=== PATIENT | female | born 1960 | race Caucasian/White ===

== ENCOUNTER 2019-10-05 13:01 | Emergency (ER) | payer BC ==
[~2019-10-05] VITALS: Ht 152.4 cm; Wt 72.7 kg
--- NOTE | 2019-10-05 13:20 | ED Lower Extremity ---
General Chief Complaint: Lower Extremity Stated Complaint: LT FOOT INJ Source: patient, RN/MD Exam Limitations: no limitations History of Present Illness Date Seen by Provider: Oct 05, 2019 Time Seen by Provider: 13:15 Initial Comments This patient is a 59-year-old female presents to the emergency department after walking and stepping on some brick and somehow hurt in her foot. Patient states it is painful to walk. Patient denies twisting her ankle. Since that the pain is in her midfoot distally toward her toes. No signs of injury no swelling. We'll do medical evaluation treatment is needed Onset: just prior to arrival Pain/Injury Location: left foot Allergies and Home Medications Patient Home Medication List Home Medication List Reviewed: Yes Review of Systems Constitutional: No no symptoms reported; see HPI; No chills, No diaphoresis, No dizziness, No fever, No malaise, No weakness, No weight gain, No weight loss, No other EENTM: No see HPI, No no symptoms reported, No ear discharge, No hearing loss, No ear pain, No blurred vision, No double vision, No eye pain, No tearing, No vision loss, No dental problems, No hoarseness, No mouth pain, No mouth swelling, No epistaxis, No nose congestion, No nose pain, No throat pain, No throat swelling, No other Respiratory: No no symptoms reported, No see HPI, No cough, No dyspnea on exertion, No hemoptysis, No orthopnea, No phlegm, No short of breath, No stridor, No wheezing, No other Cardiovascular: No no symptoms reported, No see HPI, No chest pain, No edema, No Hx of Intervention, No palpitations, No syncope, No vascular heart diseas, No other Gastrointestinal: No RUQ, No LUQ, No RLQ, No LLQ, No no symptoms reported, No see HPI, No abdominal pain, No constipation, No diarrhea, No dysphagia, No hematemesis, No heartburn, No jaundice, No loss of appetite, No melena, No nausea, No vomiting, No other Genitourinary: No no symptoms reported, No see HPI, No decreased output, No discharge, No dysuria, No frequency, No hematuria, No hesitancy, No incont inence, No nocturia, No pain, No other Musculoskeletal: see HPI, joint pain All Other Systems Reviewed Negative Unless Noted: Yes Past Vzdcwuz-Itmjim-Eewyrn Hx Patient Social History Recent Foreign Travel: No Contact w/Someone Who Travel: No Physical Exam Vital Signs Vital Signs - First Documented 10/05/19 13:17 Temp 36.5 Pulse 96 Resp 16 B/P (MAP) 124/81 (95) Pulse Ox 98 O2 Delivery Room Air Capillary Refill : Height, Weight, BMI Height: '" Weight: lbs. oz. kg; BMI Method: General Appearance: WD/WN, no apparent distress Cardiovascular: normal peripheral pulses, regular rate, rhythm, no edema, no gallop, no JVD, no murmur Respiratory: chest non-tender, lungs clear, normal breath sounds, no respiratory distress, no accessory muscle use Gastrointestinal: normal bowel sounds, non tender, soft, no organomegaly, no pulsatile mass Feet: left foot pain, left foot soft tissue tenderness Neurologic/Tendon: normal sensation Skin: normal color, warm/dry Progress/Results/Core Measures Results/Orders My Orders Orders - KINGSLEY HALEY MD Foot 3 View Left (10/05/19 13:17) Vital Signs/I&O 10/05/19 13:17 Temp 36.5 Pulse 96 Resp 16 B/P (MAP) 124/81 (95) Pulse Ox 98 O2 Delivery Room Air Progress Progress Note : Time: 13:59 Progress Note Patient has a fracture in her second metatarsal. Patient will placed in a walking boot and crutches for the first 2-3 days. Continue the walking boot and follow up with Dr. pena orthoped[facility]. Patient is to rest ice and elevate her leg is much possible. Patient states understanding she'll be discharged Departure Impression Primary Impression: Fracture of foot Disposition: 01 HOME, SELF-CARE Condition: Stable Departure-Patient Inst. Decision time for Depature: 14:00 Referrals: ANA COLVIN (PCP) Primary Care Physician MARY LAFLEUR MD Patient Instructions: Foot Fracture (DC) Add. Discharge Instructions: Rest ice and elevate. Walking boot as instructed. Follow-up with orthopedics as instructed. All discharge instructions reviewed with patient and/or family. Voiced understanding. Scripts Diclofenac Sodium (Diclofenac Sodium) 75 Mg Tablet. 75 MG PO BID for 10 Days, #20 TAB 0 Refills Prov: KINGSLEY HALEY MD 10/05/19 KINGSLEY HALEY MD Oct 05, 2019 13:20
--- NOTE | 2019-10-05 13:40 | Diagnostic Imaging Report ---
EXAMINATION: Left foot at 1225h. INDICATION: Injury foot pain. 4 views were obtained. There are no prior studies available for comparison. There is an oblique slightly displaced fracture extending through the distal shaft and neck of the 2nd metatarsal. No other fracture or acute bony abnormality is identified. The Lisfranc joint was not particularly well visualized but there is no definite abnormality of the joint. The soft tissues are unremarkable. IMPRESSION: There is an oblique slightly displaced fracture involving the distal shaft and neck of the 2nd metatarsal. There is no acute bony abnormality noted otherwise. Dictated by: Dictated on workstation # [id number]
[2019-10-05] MEDS ORDERED: DICL75TA2 PO (14:01)
--- OUTSIDE RECORDS SUMMARY | 2019-10-05 14:07 | XMS REPORT ---
Author Author Jordan CRESPO [facility] Address [address] [place] [address] Care Team Providers Care Tuberculosis Specialist Name Role Phone DELLA CRESPO Unavailable PROBLEMS Type Condition ICD9-CM Code LFT08-YC Code Onset Dates Condition S tatus SNOMED Code Problem Seasonal allergic rhinitis due to pollen J30.1 Active 10428779 Problem Autoimmune thyroiditis E06.3 Active 26936230 Problem Vitamin D deficiency E55.9 Active 94318703 Problem Fatigue, unspecified type R53.83 Acti ve 06388431 Problem Anxiety, mild F41.9 Active 388797 04 Problem Asthma, mild intermittent, well-controlled J45.20 Active 573768478 ALLERGIES Substance Reaction Event Type Date Status Mucinex Unknown Drug Allergy Feb, Active Levaquin Unknown Drug Allergy Feb, Active Keflex Unknown Drug Allergy Feb, Active Ibuprofen Unknown Drug Allergy Feb, Active Erythromycin Unknown Drug Allergy Feb, Active SOCIAL HISTORY No smoking Hx information available PLAN OF CARE VITAL SIGNS Height 60 in 2016-03-20 Weight 162.8 lbs 2016-03-20 Temperature 97.9 degrees Fahrenheit 2016-03-20 Heart Rate 86 bpm 2016-03-20 Respiratory Rate 20 2016-03-20 BMI 31.79 kg/m2 2016-03-20 Blood pressure systolic 128 mmHg 2016-03-20 Blood pressure diastolic 88 mmHg 2016-03-20 MEDICATIONS Medication Instructions Dosage Frequency Start Date End Date Duration S tatus Venlafaxine HCl ER 75 MG Orally Once a day 1 capsule with food 24h Jul, Active Advair Diskus 250-50 MCG/DOSE Inhalation Twice a day 1 puff 12h Active PredniSONE 20 mg Orally Once a day 2 tablets 24h Feb, Feb, 05 days Active Allergy Relief 10 MG Orally Once a day 1 tablet 24h Active Colon-Aid Active Cetirizine HCl 10 mg Orally Once a day 1 tablet 24h Jan, 6 Oct, 90 days Active Loratadine 10 mg Orally Once a day 1 tablet 24h Jan, Apr, 90 days Active Hydrochlorothiazide 12.5 MG Orally Once a day 1 tablet 24h Jul, 2 016 Active Fexofenadine HCl 180 MG Orally Once a day 1 tablet as needed 24h Active ProAir HFA 108 (90 Base) MCG/ACT Inhalation every 4 hrs 2 puffs as needed 4h 10 Dec, 2015 Active Levothyroxine Sodium 100 MCG Orally Once a day 1 tablet 24h 90 days Active Augmentin 875-125 MG Orally every 12 hrs 1 tablet 12h Feb, 2 017 4 Mar, 2016 10 day(s) Active Ergocalciferol 64871 UNIT Orally once weekly for 12 weeks 1 capsule Feb, Active Fluticasone Propionate 50 MCG/ACT Nasally Once a day 1 spray in each nostril 24h Jan, 90 days Active RESULTS No Results PROCEDURES Procedure Date Ordered Related Diagnosis Body Site Office Visit, Est Pt., Level 3 Mar 20, 2016 IMMUNIZATIONS No Known Immunizations
--- OUTSIDE RECORDS SUMMARY | 2019-10-05 14:07 | XMS REPORT ---
Author Author Jordan NEELY Organization [facility] Address [address] [place] [address] Care Team Providers Care Back Shoe Cutter Name Role Phone NURIA NEELY Unavailable PROBLEMS Type Condition ICD9-CM Code JGF10-NZ Code Onset Dates Condition S tatus SNOMED Code Problem Seasonal allergic rhinitis due to pollen J30.1 Active 00875230 Problem Autoimmune thyroiditis E06.3 Active 86703700 Problem Vitamin D deficiency E55.9 Active 57448410 Problem Fatigue, unspecified type R53.83 Acti ve 30951265 Problem Anxiety, mild F41.9 Active 074993 04 Problem Asthma, mild intermittent, well-controlled J45.20 Active 318582730 ALLERGIES Unknown Allergies SOCIAL HISTORY No smoking Hx information available PLAN OF CARE VITAL SIGNS MEDICATIONS Medication Instructions Dosage Frequency Start Date End Date Duration S tatus Ergocalciferol 98226 UNIT Orally once weekly for 12 weeks 1 capsule Feb, Active RESULTS No Results PROCEDURES No Known procedures IMMUNIZATIONS No Known Immunizations
--- OUTSIDE RECORDS SUMMARY | 2019-10-05 14:07 | XMS REPORT ---
Author Author Jordan COLVIN [facility] Address [address] [place] [address] Care Team Providers Care Roast Master Name Role Phone VINICIUS ANA Unavailable PROBLEMS Type Condition ICD9-CM Code DOK77-NJ Code Onset Dates Condition S tatus SNOMED Code Problem Seasonal allergic rhinitis due to pollen J30.1 Active 10365856 Problem Autoimmune thyroiditis E06.3 Active 70007069 Problem Vitamin D deficiency E55.9 Active 37075653 Problem Fatigue, unspecified type R53.83 Acti ve 86148659 Problem Anxiety, mild F41.9 Active 711590 04 Problem Asthma, mild intermittent, well-controlled J45.20 Active 451962873 ALLERGIES No Information ENCOUNTERS Encounter Location Date Diagnosis [address] [id number] [place], [place] [id number] Jul, Well woman exam (no gynecological exam) Z00.00 ; Colon cancer screening Z12.11 ; Breast cancer screening by mammogram Z12.31 ; Autoimmune thyroiditis E06.3 and Fatigue, unspecified type R53.[address] [id number] [place], [place] [address] 218700 Mar, Anxiety, mild F41.[address] [id number] [place], [place] [address] 070615 Nov, Asthma, mild intermittent, well-controlled J45.[address] [id number] [place], [place] [address] 924438 Nov, Pre-diabetes R73.03 [facility] [address] [place] [address] C [id number] [place], [place] [address] 714270 Aug, Pre-diabetes R73.03 [facility] [address] [place] [address] C [id number] [place], [place] [address] 626140 Aug, Autoimmune thyroiditis E06.3 [place] [address] [address] [facility] [id number] [address] [place] [phone] 06 Aug, 2016 Anxiety, mild F41.9 ; Vitami n D deficiency E55.9 and Autoimmune thyroiditis E06.3 [facility] [place] [address] [facility] [id number] [place], [place] [address] 198631 03 Aug, 2016 Well woman exam (no gynecological exam) Z00.00 and Encounter for screening mammogram for breast cancer Z12.[address] [id number] [address] [place] [phone] Jul, [address] [id number] [place] [address] June, Anxiety, mild F41.9 ; Vitami n D deficiency E55.9 ; Seasonal allergic rhinitis due to pollen J30.1 ; Asthma, mild intermittent, well- controlled J45.20 and Autoimmune thyroiditis E06.[address] [id number] [address] [place] [phone] May, [facility] [place] [address] [address] [facility] [id number] [address] [place] [phone] Feb, Acute recurrent frontal sinu sitis J01.11 [place] [address] [address] [facility] [id number] [address] [place] [phone] Feb, [address] [id number] [address] [place] [phone] Feb, [place] [address] [address] [place] [id number] [address] [place] [phone] Feb, Postprocedural hypothyroidis m E89.0 and Other fatigue R53.83 [facility] [address] [facility] [id number] [address] [place] [phone] Feb, Acute recurrent pansinusitis J01.41 [place] [address] [address] [facility] [id number] [address] [place] [address] Feb, Postprocedural hypothyroidis m E89.0 and Other fatigue R53.83 [facility] [place] [address] [facility] [id number] [address] [place] [phone] Jan, Seasonal allergic rhinitis d ue to pollen J30.1 and Hypothyroidism E03.9 [facility] [place] [address] [facility] [id number] [place] [address] 05 Jan, 2016 Upper respiratory infection, acute J06.9 [facility] [place] [address] [facility] [id number] [address] [place] [phone] Dec, Routine health maintenance Z 00.00 ; Asthma, mild intermittent, well-controlled J45.20 ; Autoimmune thyroiditis E06.3 ; Hypothyroidism E03.9 and Anxiety, mild F41.[address] [id number] [place], [place] [address] [id number] Sep, [facility] [place] [address] [place] [address] [address] [id number] [place], [place] [address] 904387 Sep, [facility] [place] [address] [place] [address] [address] [id number] [place], [place] [address] 745861 Sep, [facility] [place] [address] [place] [address] [address] [id number] [place] [address] [id number] Sep, [facility] [address] [place] [address] [address] [id number] [place], [place] [address] 265534 Jul, [facility] [place] [address] [place] [address] [address] [id number] [place], [place] [address] 665302 Jul, Edema, unspecified type R60.9 and Hypothyroidism E03.9 [facility] [place] [address] [place] [address] [address] [id number] [place], [place] [address] 049748 09 Jul, 2015 Routine gynecological examination Z01.419 ; Screening for lipid disorders Z13.220 ; Screening for diabetes mellitus Z13.1 ; Dysuria R30.0 and Encounter for screening mammogram for breast cancer Z12.31 [facility] [address] [place] [address] [address] [id number] [place], [place] [address] 960779 Jul, [facility] [address] [place] [address] [address] [id number] [place], [place] [address] [id number] Jul, Hypothyroidism E03.9 ; Acute right-sided low back pain without sciatica M54.5 ; Screening for lipid disorders Z13.220 and Screening for diabetes mellitus Z13.1 [facility] [place] [address] [facility] [id number] [address] [place] [phone] Apr, [facility] [place] [address] [facility] [address] [id number] [place], [place] [address] [id number] Mar, [facility] [place] [address] [facility] [address] [id number] [place] [address] 996684 Feb, [facility] [place] [address] [facility] [address] [id number] [place], [place] [address] 928813 Feb, Left maxillary sinusitis J32.0 [facility] [place] [address] [facility] [address] [id number] [place], [place] [address] 395163 Feb, Dental examination Z01.20 [facility] [place] [address] [facility] [address] [id number] [place] [address] [id number] Sep, Upper respiratory infection 465.9 [facility] [place] [address] [facility] [address] [id number] [place], [place] [address] [id number] 15 Jul, 2014 [facility] [place] [address] [facility] [address] [id number] [place] [address] 578865 Jul, [facility] [place] [address] [facility] [address] [id number] [place], [place] [address] 080221 10 Jul, 2014 [facility] [place] [address] [facility] [address] [id number] [place] [address] 027535 08 Jul, 2014 Anxiety 300.00 ; Asthma 493.90 ; URI, acute 465.9 and 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 [facility] [place] [address] [facility] [address] [id number] [place], [place] [address] [id number] June, [facility] [place] [address] [facility] [address] [id number] [place], [place] [address] 230352 June, Asthma 493.90 and Unspecified disorder of thyroid 246.9 [facility] [place] [address] [facility] [id number] [address] [place] [phone] 14 May, 2014 [facility] [place] [address] [facility] [id number] [address] [place] [phone] May, [facility] [place] [address] [facility] [id number] [address] [place] [phone] Mar, [facility] [place] [address] [facility] [id number] [address] [place] [phone] Mar, [facility] [place] [address] [facility] [id number] [address] [place] [phone] Mar, [facility] [place] [address] [facility] [id number] [address] [place] [phone] Mar, IMMUNIZATIONS No Known Immunizations SOCIAL HISTORY Never Assessed REASON FOR VISIT med refills PLAN OF CARE VITAL SIGNS MEDICATIONS Medication Instructions Dosage Frequency Start Date End Date Duration S latoya Venlafaxine HCl ER 37.5 MG Orally Once a day 1 capsule with food 24 h Jul, 90 days Active RESULTS No Results PROCEDURES No Known procedures INSTRUCTIONS MEDICATIONS ADMINISTERED No Known Medications MEDICAL (GENERAL) HISTORY Type Description Date Medical History Other asthma Medical History Hypothyroidism Medical History Autoimmune thyroiditis Medical History Anxiety Medical History Blanca's disease Medical History galbladder removal Surgical History thyroidectomy, complete Surgical History dilatation and curettage Surgical History R shoulder Surgical History had cartilage removed from bilat knees Surgical History gallbladder removal 04/2017 Hospitalization History Hospitalization for surgery only
--- OUTSIDE RECORDS SUMMARY | 2019-10-05 14:07 | XMS REPORT ---
Author Author Jordan COLVIN [facility] [address] Address [address] [place] [address] Care Team Providers Care Stencil Typist Name Role Phone VINICIUS ANA Unavailable PROBLEMS Type Condition ICD9-CM Code [id number] Code Onset Dates Condition S tatus SNOMED Code Problem Seasonal allergic rhinitis due to pollen J30.1 Active 28332069 Problem Autoimmune thyroiditis E06.3 Active 77487064 Problem Vitamin D deficiency E55.9 Active 29581880 Problem Fatigue, unspecified type R53.83 Acti ve 76590456 Problem Anxiety, mild F41.9 Active 181674 04 Problem Asthma, mild intermittent, well-controlled J45.20 Active 573091458 ALLERGIES Substance Reaction Event Type Date Status Mucinex Unknown Drug Allergy Jul, Active Levaquin Unknown Drug Allergy Jul, Active Keflex Unknown Drug Allergy Jul, Active Ibuprofen Unknown Drug Allergy Jul, Active Erythromycin Unknown Drug Allergy Jul, Active ENCOUNTERS Encounter Location Date Diagnosis [facility] [address] [place] [address] Jul, 18 Well woman exam (no gynecological exam) Z00.00 ; Colon cancer screening Z12.11 ; Breast cancer screening by mammogram Z12.31 ; Autoimmune thyroiditis E06.3 and Fatigue, unspecified type R53.83 [facility] [address] [place] [address] 16 Mar, 18 Anxiety, mild F41.9 [facility] [address] [place] [address] Nov, 17 Asthma, mild intermittent, well-controlled J45.20 [facility] [address] [place] [address] Nov, 17 Pre-diabetes R73.[address] [address] 18 Young, 20 17 Pre-diabetes R73.03 [place] [address] [place] [address] Aug, 17 Autoimmune thyroiditis E06.3 [place] [address] [address] Aug, Anxiety, mild F41.9 ; Vitami n D deficiency E55.9 and Autoimmune thyroiditis E06.3 [place] [address] [place] [address] Aug, 17 Well woman exam (no gynecological exam) Z00.00 and Encounter for screening mammogram for breast cancer Z12.31 [place] [address] [address] Jul, [place] [address] [address] June, Anxiety, mild F41.9 ; Vitami n D deficiency E55.9 ; Seasonal allergic rhinitis due to pollen J30.1 ; Asthma, mild intermittent, well- controlled J45.20 and Autoimmune thyroiditis E06.3 [place] [address] [place] [id number] [place] [address] May, [facility]ALK [facility] [place] [address] [place] [id number] [place] [address] Feb, Acute recurrent frontal sinu sitis J01.11 [place] [address] [place] [id number] [place] [address] Feb, [place] [address] [place] [address] Feb, [place] [address] [address] Feb, Postprocedural hypothyroidis m E89.0 and Other fatigue R53.83 [facility] [address] [place] [id number] [place] [address] Feb, Acute recurrent pansinusitis J01.41 [place] [address] [place] [id number] [place] [address] Feb, Postprocedural hypothyroidis m E89.0 and Other fatigue R53.83 [place] [id number] [place] [address] Jan, Seasonal allergic rhinitis d ue to pollen J30.1 and Hypothyroidism E03.9 [facility] WALK IN [facility] [address] [place], [place] [id number] [address] [place] [address] 05 Jan, 2016 Upper respiratory infection, acute J06.9 [facility] [address] [place] [id number] [address] [place] [address] 10 Dec, 2015 Routine health maintenance Z 00.00 ; Asthma, mild intermittent, well-controlled J45.20 ; Autoimmune thyroiditis E06.3 ; Hypothyroidism E03.9 and Anxiety, mild F41.[address] [address] Sep, [address] [address] Sep, [address] [address] Sep, [address] [address] Sep, [address] [address] Jul, [address] [address] Jul, 16 Edema, unspecified type R60.9 and Hypothyroidism E03.[address] [address] 09 Jul, 16 Routine gynecological examination Z01.419 ; Screening for lipid disorders Z13.220 ; Screening for diabetes mellitus Z13.1 ; Dysuria R30.0 and Encounter for screening mammogram for breast cancer Z12.[address] [address] Jul, [address] [address] Jul, 16 Hypothyroidism E03.9 ; Acute right-sided low back pain without sciatica M54.5 ; Screening for lipid disorders Z13.220 and Screening for diabetes mellitus Z13.1 [facility] [address] [place] [id number] [place] [address] Apr, [address] [address] Mar, [address] [address] Feb, [address] [address] Feb, 16 Left maxillary sinusitis J32.[address] [address] Feb, 16 Dental examination Z01.[address] [address] Sep, 15 Upper respiratory infection 465.[address] [address] 15 Jul, [address] [address] Jul, [address] [address] Jul, [address] [address] 08 Jul, 15 Asthma 493.90 ; Anxiety 300.00 ; URI, acute 465.9 and 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 [address] June, [address] [address] June, 15 Asthma 493.90 and Unspecified disorder of thyroid 246.9 [facility] [address] [place] [id number] [address] [place] [address] May, [facility] [address] [place] [id number] [place] [address] May, [facility] [address] [place] [id number] [address] [place] [address] Mar, [facility] [address] [facility] [id number] [address] [place] [address] Mar, [facility] [address] [facility] [id number] [address] [place] [address] Mar, [facility] [address] [facility] [id number] [address] [place] [address] Mar, IMMUNIZATIONS No Known Immunizations SOCIAL HISTORY Never Assessed REASON FOR VISIT Annual physical (female); no problems; no period for 5yrs -- has gone through me nopause; possible increase in venlafaxine?? Pt is fasting....................lwi leyrn PLAN OF CARE Activity Details Follow Up prn, 1 Year Reason: VITAL SIGNS Height 60 in 2017-08-11 Weight 156.1 lbs 2017-08-11 Temperature 97.6 degrees Fahrenheit 2017-08-11 Heart Rate 64 bpm 2017-08-11 Respiratory Rate 18 2017-08-11 BMI 30.48 kg/m2 2017-08-11 Blood pressure systolic 128 mmHg 2017-08-11 Blood pressure diastolic 74 mmHg 2017-08-11 MEDICATIONS Medication Instructions Dosage Frequency Start Date End Date Duration S tatus Levothyroxine Sodium 100 MCG Orally Once a day 1 tablet 24h 90 days Active Venlafaxine HCl ER 75 MG TAKE ONE TABLET BY MOUTH ONCE DAILY WITH FOOD Active Fluticasone Propionate 50 MCG/ACT Nasally Once a day 1 spray in each nostril 24h Jan, 90 days Active Advair Diskus 250-50 MCG/DOSE Inhalation Twice a day 1 puff 12h Active ProAir HFA 108 (90 Base) MCG/ACT Inhalation every 4 hrs 2 puffs as needed 4h 10 Dec, 2015 12 months Active Fexofenadine HCl 180 MG Orally Once a day 1 tablet as needed 24h Active RESULTS No Results PROCEDURES Procedure Date Ordered Result Body Site COMPREHEN METABOLIC PANEL August 11, 2017 VENIPUNCT, ROUTINE* August 11, 2017 ASSAY THYROID STIM HORMONE August 11, 2017 INSTRUCTIONS MEDICATIONS ADMINISTERED No Known Medications MEDICAL [...]
--- OUTSIDE RECORDS SUMMARY | 2019-10-05 14:07 | XMS REPORT ---
Author Author Jordan NEELY Organization [facility] Address [address] [place] [address] Care Team Providers Care Lining Folder Name Role Phone NURIA NEELY Unavailable PROBLEMS Type Condition ICD9-CM Code [id number] Code Onset Dates Condition S tatus SNOMED Code Problem Seasonal allergic rhinitis due to pollen J30.1 Active 35176029 Problem Autoimmune thyroiditis E06.3 Active 23999631 Problem Fatigue, unspecified type R53.83 Acti ve 33411846 Problem Vitamin D deficiency E55.9 Active 39515909 Problem Anxiety, mild F41.9 Active 728327 04 Problem Asthma, mild intermittent, well-controlled J45.20 Active 573075757 ALLERGIES Unknown Allergies SOCIAL HISTORY No smoking Hx information available PLAN OF CARE VITAL SIGNS MEDICATIONS Medication Instructions Dosage Frequency Start Date End Date Duration S tatus Levothyroxine Sodium 100 MCG Orally Once a day 1 tablet 24h 90 days Active RESULTS No Results PROCEDURES No Known procedures IMMUNIZATIONS No Known Immunizations
--- OUTSIDE RECORDS SUMMARY | 2019-10-05 14:07 | XMS REPORT ---
Author Author Jordan RAYMUNDO Organization [facility] Address [address] [place] [address] Care Team Providers Care Automatic Engraver Name Role Phone ZACKARY FERNANDA Unavailable PROBLEMS Type Condition ICD9-CM Code [id number] Code Onset Dates Condition S tatus SNOMED Code Problem Autoimmune thyroiditis E06.3 Active 48558870 Problem Hypothyroidism E03.9 Active 91616 008 Assessment Edema, unspecified type R60.9 Jul, Ac tive 838209312 Problem Anxiety, mild F41.9 Active 306617 04 Problem Asthma, mild intermittent, well-controlled J45.20 Active 298281387 ALLERGIES Substance Reaction Event Type Date Status Mucinex Unknown Drug Allergy Jul, Active Levaquin Unknown Drug Allergy Jul, Active Keflex Unknown Drug Allergy Jul, Active Ibuprofen Unknown Drug Allergy Jul, Active Erythromycin Unknown Drug Allergy Jul, Active SOCIAL HISTORY No smoking Hx information available PLAN OF CARE VITAL SIGNS Height 5' 0" in 2015-08-17 Weight 161.8 lbs 2015-08-17 Heart Rate 84 bpm 2015-08-17 Respiratory Rate 18 2015-08-17 BMI 31.60 kg/m2 2015-08-17 Blood pressure systolic 112 mmHg 2015-08-17 Blood pressure diastolic 80 mmHg 2015-08-17 MEDICATIONS Medication Instructions Dosage Frequency Start Date End Date Duration S tatus Fexofenadine HCl 180 MG Orally Once a day 1 tablet as needed 24h Active Hydrochlorothiazide 12.5 MG Orally Once a day 1 tablet 24h Jul, 016 Active Levothyroxine Sodium 100 MCG Orally Once a day 1 tablet 24h Active Allergy Relief 10 MG Orally Once a day 1 tablet 24h Active RESULTS Name Result Date Reference Range TSH W/ FREE T4 2015-08-17 TSH 0.678 0.450-4.500 T4,Free(Direct) 1.50 0.82-1.77 PROCEDURES Procedure Date Ordered Related Diagnosis Body Site LAB NOT BILLED BY [facility] August 17, 2015 VENIPUNCT, ROUTINE* August 17, 2015 Office Visit, Est Pt., Level 3 August 17, 2015 IMMUNIZATIONS No Known Immunizations
--- OUTSIDE RECORDS SUMMARY | 2019-10-05 14:07 | XMS REPORT ---
Author Author Jordan COLVIN [facility] Address [address] [place] [address] Care Team Providers Care Salesperson Stereo Equipment Name Role Phone ANA COLVIN Unavailable PROBLEMS Type Condition ICD9-CM Code [id number] Code Onset Dates Condition S tatus SNOMED Code Problem Seasonal allergic rhinitis due to pollen J30.1 Active 79341359 Problem Autoimmune thyroiditis E06.3 Active 30092959 Problem Vitamin D deficiency E55.9 Active 80397788 Problem Fatigue, unspecified type R53.83 Acti ve 34983452 Problem Anxiety, mild F41.9 Active 618382 04 Problem Asthma, mild intermittent, well-controlled J45.20 Active 748198612 ALLERGIES Substance Reaction Event Type Date Status Mucinex Unknown Drug Allergy Aug, Active Levaquin Unknown Drug Allergy Aug, Active Keflex Unknown Drug Allergy Aug, Active Ibuprofen Unknown Drug Allergy Aug, Active Erythromycin Unknown Drug Allergy Aug, Active ENCOUNTERS Encounter Location Date Diagnosis [address] [id number] [place], [place] [id number] Mar, Anxiety, mild F41.[address] [id number] [place], [place] [id number] Nov, Asthma, mild intermittent, well-controlled J45.[address] [id number] [place], [place] [id number] Nov, Pre-diabetes R73.[address] [id number] [place], [place] [address] Aug, Pre-diabetes R73.[address] [id number] [place], [place] [address] Aug, Autoimmune thyroiditis E06.3 [facility] [address] [facility] [id number] [facility] [place] [address] Aug, Anxiety, mild F41.9 ; Vitami n D deficiency E55.9 and Autoimmune thyroiditis E06.3 [facility] [address] [facility] [id number] [place], [place] [address] 03 Aug, 2016 Well woman exam (no gynecological exam) Z00.00 and Encounter for screening mammogram for breast cancer Z12.[address] [id number] [address] [place] [address] Jul, [id number] [place] [address] 09 Jun, 2016 Anxiety, mild F41.9 ; Vitami n D deficiency E55.9 ; Seasonal allergic rhinitis due to pollen J30.1 ; Asthma, mild intermittent, well- controlled J45.20 and Autoimmune thyroiditis E06.3 [place] [address] [place] [id number] [place] [address] May, [facility] WALK IN [place] [address] [place] [address] Feb, Acute recurrent frontal sinu sitis J01.11 [place] [address] [place] [id number] [place] [address] Feb, [place] [address] [place] [id number] [place] [address] Feb, [place] [address] [place] [id number] [place] [address] Feb, Postprocedural hypothyroidis m E89.0 and Other fatigue R53.83 [facility] [address] [facility] [id number] [address] [place] [address] Feb, Acute recurrent pansinusitis J01.41 [place] [address] [place] [id number] [place] [address] 02 Feb, 2016 Postprocedural hypothyroidis m E89.0 and Other fatigue R53.83 [place] [address] [place] [id number] [place] [address] Jan, Seasonal allergic rhinitis d ue to pollen J30.1 and Hypothyroidism E03.9 [facility] [address] [facility] [id number] [address] [place] [address] 05 Jan, 2016 Upper respiratory infection, acute J06.9 [facility] [address] [facility] [id number] [address] [place] [address] 10 Dec, 2015 Routine health maintenance Z 00.00 ; Asthma, mild intermittent, well-controlled J45.20 ; Autoimmune thyroiditis E06.3 ; Hypothyroidism E03.9 and Anxiety, mild F41.9 [facility] [place] [address] [facility] [address] [id number] [place], [place] [address] Sep, [facility] [place] [address] [place] [address] [address] [id number] [place] [address] Sep, [facility] [place] [address] [place] [address] [address] [id number] [place] [address] [id number] Sep, [facility] [place] [address] [place] [address] [address] [id number] [place], [place] [address]69[address] Sep, [facility] [place] [address] [facility] [address] [id number] [place], [place] [address]398 Jul, [facility] [place] [address] [place] [address] [address] [id number] [place], [place] [id number] Jul, Edema, unspecified type R60.9 and Hypothyroidism E03.9 [facility] [place] [address] [facility] [address] [id number] [place], [place] [address] 060632 09 Jul, 2015 Routine gynecological examination Z01.419 ; Screening for lipid disorders Z13.220 ; Screening for diabetes mellitus Z13.1 ; Dysuria R30.0 and Encounter for screening mammogram for breast cancer Z12.31 [facility] [place] [address] [facility] [address] [id number] [place] [id number] 06 Jul, 2015 [facility] [place] [address] [facility] [address] [id number] [place], [place] [address]455 Jul, Hypothyroidism E03.9 ; Acute right-sided low back pain without sciatica M54.5 ; Screening for lipid disorders Z13.220 and Screening for diabetes mellitus Z13.1 [facility] [address] [facility] [id number] [address] [place] [address] Apr, [facility] [place] [address] [facility] [address] [id number] [place] [address] Mar, [facility] [place] [address] [facility] [address] [id number] [place], [place] [address] 822204 Feb, [facility] [place] [address] [facility] [address] [id number] [place] [address] 903866 Feb, Left maxillary sinusitis J32.0 [facility] [place] [address] [facility] [address] [id number] [place] [address] 0505[address] Feb, Dental examination Z01.20 [facility] [place] [address] [facility] [address] [id number] [place] [address] 918318 Sep, Upper respiratory infection 465.9 [facility] [place] [address] [facility] [address] [id number] [place] [address] 707153 15 Jul, 2014 [facility] [place] [address] [facility] [address] [id number] [place] [address] 430063 Jul, [facility] [place] [address] [facility] [address] [id number] [place] [address] 526069 Jul, [facility] [place] [address] [place] [address] [address] [id number] [place] [address] 944729 08 Jul, 2014 Anxiety 300.00 ; Asthma 493.90 ; URI, acute 465.9 and 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 [facility] [place] [address] [facility] [address] [id number] [place] [address] 647749 June, [facility] [place] [address] [place] [address] [address] [id number] [place], [place] [address] 759586 June, Asthma 493.90 and Unspecified disorder of thyroid 246.9 [facility] [address] [facility] [id number] [address] [place] [address] 14 May, 2014 [facility] [address] [facility] [id number] [address] [place] [address] May, [facility] [address] [facility] [id number] [address] [place] [address] Mar, [facility] [address] [facility] [id number] [address] [place] [address] Mar, [facility] [address] [facility] [id number] [address] [place] [address] Mar, [facility] [address] [facility] [id number] [address] [place] [address] Mar, IMMUNIZATIONS No Known Immunizations SOCIAL HISTORY Never Assessed REASON FOR VISIT lab review. Skylar PLAN OF CARE Activity Details Follow Up prn, 3 Months Reason: VITAL SIGNS Height 60 in 2016-09-10 Weight 163.3 lbs 2016-09-10 Temperature 97.9 degrees Fahrenheit 2016-09-10 Heart Rate 80 bpm 2016-09-10 Respiratory Rate 18 2016-09-10 BMI 31.89 kg/m2 2016-09-10 Blood pressure systolic 116 mmHg 2016-09-10 Blood pressure diastolic 88 mmHg 2016-09-10 MEDICATIONS Medication Instructions Dosage Frequency Start Date End Date Duration S tatus Levothyroxine Sodium 100 MCG Orally Once a day 1 tablet 24h 90 days Active ProAir HFA 108 (90 Base) MCG/ACT Inhalation every 4 hrs 2 puffs as needed 4h 10 Dec, 2015 12 months Active Fluticasone Propionate 50 MCG/ACT Nasally Once a day 1 spray in each nostril 24h Jan, 90 days Active Venlafaxine HCl ER 37.5 MG Orally Once a day 1 capsule with food 24 h Jul, 90 days Active Fexofenadine HCl 180 MG Orally Once a day 1 tablet as needed 24h Active Advair Diskus 250-50 MCG/DOSE Inhalation Twice a day 1 puff 12h 12 months Active RESULTS No Results PROCEDURES No Known procedures INSTRUCTIONS MEDICATIONS ADMINISTERED No Known Medications MEDICAL (GENERAL) HISTORY Type Description Date Medical History Other asthma Medical History Hypothyroidism Medical History Autoimmune thyroiditis Medical History Anxiety Medical History Blanca's disease Surgical History thyroidectomy, complete Surgical History dilatation and curettage Surgical History R shoulder Surgical History had cartilage removed from bilat knees Hospitalization History Hospitalization for surgery only
--- OUTSIDE RECORDS SUMMARY | 2019-10-05 14:07 | XMS REPORT ---
Author Author Jordan NEELY [employer] Address Unknown Phone Unavailable Care Team Providers Care Hand Hardener Name Role Phone NURIA NEELY CP Unavailable Allergies, Adverse Reactions, Alerts Substance Reaction Event Type Mucinex Info Not Available Drug Allergy Levaquin Info Not Available Drug Allergy Keflex Info Not Available Drug Allergy Ibuprofen Info Not Available Drug Allergy Erythromycin Info Not Available Drug Allergy Problems Problem Type Condition Code Onset Dates Condition Statu s Assessment Hypothyroidism E03.9 Active Assessment Anxiety, mild F41.9 Active Problem Hypothyroidism E03.9 Active Problem Anxiety, mild F41.9 Active Problem Autoimmune thyroiditis E06.3 Activ e Assessment Asthma, mild intermittent, well-controlled J45.20 Active Assessment Autoimmune thyroiditis E06.3 Activ e Problem Asthma, mild intermittent, well-controlled J45.20 Active Assessment Routine health maintenance Z00.00 A ctive Medications Medication Code System Code Instructions Start Date End Date Status Dosage Levothyroxine Sodium [facility] [address]-47 100 MCG Orally Once a day 1 tablet Adv[address] Diskus [facility] [address]-39 250-50 MCG/DOSE Inhalation Twice a d ay 1 puff Venlafaxine HCl ER [facility] [address]-93 37.5 MG by or al route Once a day x 2 weeks. Then increase to 2 capsules daily August 21, 2015 Take 1 capsule with food Colon-Aid NDC 0 not defined ProAir HFA [facility] [address]-48 108 (90 Base) MCG/ACT Inhal ation every 4 hrs Jan 04, 2016 2 puffs as needed Allergy Relief [facility] [address]-01 10 MG Orally Once a day [address] [facility] [address]-76 12.5 MG Orally Once a day August 17, 2015 1 tablet Procedures Procedure Coding System Code Date Office Visit, Est Pt., Level 3 CPT-4 22631 N 2015 Vital Signs Date/Time: Jan 04, 2016 Cardiac Monitoring Heart Rate 80 bpm Weight 166 lbs Height 5' 0" in BMI 32.42 Index Blood Pressure Diastolic 80 mmHg Blood Pressure Systolic 114 mmHg Results No Known Results Summary Purpose [employer] Submission
--- OUTSIDE RECORDS SUMMARY | 2019-10-05 14:07 | XMS REPORT ---
Author Jordan Vivar eClinicalWorks Address Unknown Phone Unavailable Care Team Providers Care Splitter Head Name Role Phone FERNANDA RAYMUNDO CP Unavailable Allergies, Adverse Reactions, Alerts Substance Reaction Event Type Mucinex Info Not Available Drug Allergy Levaquin Info Not Available Drug Allergy Keflex Info Not Available Drug Allergy Ibuprofen Info Not Available Drug Allergy Erythromycin Info Not Available Drug Allergy Problems Problem Type Condition Code Onset Dates Condition Statu s Assessment Routine gynecological examination Z01.419 Active Problem Asthma 493.90 Active Problem Acute sinusitis, unspecified 461.9 Active Problem Anxiety F41.9 Active Problem Other asthma J45.998 Active Problem Autoimmune thyroiditis E06.3 Activ e Problem Anxiety 300.00 Active 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 Problem Hypothyroidism E03.9 Active Problem Acute right-sided low back pain without sciatica M54.5 Active Assessment Encounter for screening mammogram for breast cancer Z1 2.31 Active Assessment Dysuria R30.0 Active Assessment Screening for diabetes mellitus Z13.1 Active Assessment Screening for lipid disorders Z13.220 Active Medications Medication Code System Code Instructions Start Date End Date Status Dosage Allergy Relief [facility] [address]-38 10 MG Orally Once a day 1 tablet Fexofenadine HCl [facility] [address]-92 180 MG Orally Once a day 1 tablet as needed Levothyroxine Sodium [facility] [address]-72 100 MCG Orally Once a day 1 tablet Bactrim DS [facility] [address]-14 800-160 MG Orally Twice a day JulAugust 10, 2015 1 tablet Procedures Procedure Coding System Code Date URINALYSIS, AUTO, W/O SCOPE CPT-4 83031 August 03, 2015 VENIPUNCT, ROUTINE* CPT-4 84716 August 02, 6 [facility] C[facility]-4 NOBLL July TEST FOR BLOOD, FECES CPT-4 68520 August 02 016 SPECIMEN HANDLING CPT-4 79356 August 03, 2015 Preventive Care Est Pt. Age 40-64 CPT-4 14801 August 03, 2015 Vital Signs Date/Time: August 03, 2015 Cardiac Monitoring Heart Rate 88 bpm Weight 158 lbs Height 5' 0" in Blood Pressure Diastolic 80 mmHg Blood Pressure Systolic 110 mmHg Results No Known Results Summary Purpose eClinicalWorks Submission
--- OUTSIDE RECORDS SUMMARY | 2019-10-05 14:07 | XMS REPORT ---
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
--- OUTSIDE RECORDS SUMMARY | 2019-10-05 14:07 | XMS REPORT ---
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
--- OUTSIDE RECORDS SUMMARY | 2019-10-05 14:07 | XMS REPORT ---
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 Problem Asthma 493.90 Active Problem Anxiety 300.00 Active Problem Acute sinusitis, unspecified 461.9 Active Assessment Dental examination Z01.20 Active Medications Medication Code System Code Instructions Start Date End Date Status Dosage Ativan [facility] [address]-37 0.5 MG Orally 3 times a day August 01, 2014 1 tablet as needed Sertraline HCl [facility] [address]-65 50 MG Orally Once a day August 01 15 1 tablet Advair Diskus [facility] [address]-29 250-50 MCG/DOSE Inhalation Twice a d ay 1 puff Levothyroxine Sodium [facility] [address]-17 125 MCG Orally Once a day 1 tablet Procedures Procedure Coding System Code Date BITEWINGS - FOUR FILMS CPT-4 D0274 Mar 07 016 PROPHYLAXIS - ADULT CPT-4 D1110 Mar 07, 2015 COMP ORAL EVALUATION - NEW/EST PT CPT-4 D0150 Mar 07, 2015 Vital Signs Date/Time: Mar 07, 2015 Blood Pressure Diastolic 89 mmHg Blood Pressure Systolic 125 mmHg Results No Known Results Summary Purpose eClinicalWorks Submission
--- OUTSIDE RECORDS SUMMARY | 2019-10-05 14:07 | XMS REPORT ---
Author Author Jordan NEELY Organization [facility] Address [address] [place] [address] Care Team Providers Care Cow Rider Name Role Phone NURIA NEELY Unavailable PROBLEMS Type Condition ICD9-CM Code XRF10-WA Code Onset Dates Condition S tatus SNOMED Code Problem Seasonal allergic rhinitis due to pollen J30.1 Active 23248469 Problem Autoimmune thyroiditis E06.3 Active 03394401 Problem Vitamin D deficiency E55.9 Active 78347521 Problem Fatigue, unspecified type R53.83 Acti ve 70864191 Problem Anxiety, mild F41.9 Active 129430 04 Problem Asthma, mild intermittent, well-controlled J45.20 Active 233145857 ALLERGIES Substance Reaction Event Type Date Status Mucinex Unknown Drug Allergy June, Active Levaquin Unknown Drug Allergy June, Active Keflex Unknown Drug Allergy June, Active Ibuprofen Unknown Drug Allergy June, Active Erythromycin Unknown Drug Allergy June, Active SOCIAL HISTORY Never Assessed PLAN OF CARE Activity Details Follow Up 3 Months Reason:[facility] VITAL SIGNS Height 60 in 2016-07-02 Weight 163 lbs 2016-07-02 Temperature 97.7 degrees Fahrenheit 2016-07-02 Heart Rate 100 bpm 2016-07-02 Respiratory Rate 20 2016-07-02 BMI 31.83 kg/m2 2016-07-02 Blood pressure systolic 124 mmHg 2016-07-02 Blood pressure diastolic 80 mmHg 2016-07-02 MEDICATIONS Medication Instructions Dosage Frequency Start Date End Date Duration S tatus Fluticasone Propionate 50 MCG/ACT Nasally Once a day 1 spray in each nostril 24h Jan, 90 days Active Fexofenadine HCl 180 MG Orally Once a day 1 tablet as needed 24h Active Venlafaxine HCl ER 37.5 MG Orally Once a day 1 capsule with food 24 h Jul, 90 days Active Advair Diskus 250-50 MCG/DOSE Inhalation Twice a day 1 puff 12h 12 months Active Cholecalciferol 5000 UNIT Orally Once a day 1 capsule 24h Active ProAir HFA 108 (90 Base) MCG/ACT Inhalation every 4 hrs 2 puffs as needed 4h Dec, 12 months Active Levothyroxine Sodium 100 MCG Orally Once a day 1 tablet 24h 90 days Active RESULTS No Results PROCEDURES No Known procedures IMMUNIZATIONS No Known Immunizations MEDICAL (GENERAL) HISTORY Type Description Date Medical History Other asthma Medical History Hypothyroidism Medical History Autoimmune thyroiditis Medical History Anxiety Medical History Lbanca's disease Surgical History thyroidectomy, complete Surgical History dilatation and curettage Surgical History R shoulder Surgical History had cartilage removed from bilat knees Hospitalization History Hospitalization for surgery only
--- OUTSIDE RECORDS SUMMARY | 2019-10-05 14:07 | XMS REPORT ---
Author Author Migration, Ty Doctor Organization [facility] Address Unknown Phone Unavailable Care Team Providers Care Poultry Husbandry Teacher Name Role Phone Migration, Doctor Unavailable Unavailable PROBLEMS Type Condition ICD9-CM Code QLW50-OT Code Onset Dates Condition S tatus SNOMED Code Problem Autoimmune thyroiditis E06.3 Active 78084666 Problem Seasonal allergic rhinitis due to pollen J30.1 Active 97275372 Problem Fatigue, unspecified type R53.83 Acti ve 29786896 Problem Vitamin D deficiency E55.9 Active 79544820 Problem Asthma, mild intermittent, well-controlled J45.20 Active 211245727 Problem Anxiety, mild F41.9 Active 201265 04 ALLERGIES No Information ENCOUNTERS Encounter Location Date Diagnosis [facility] [address] [place] [phone] 23 May, 19 [facility] [address] [facility] [id number] [place] [address] 12 May, 2018 Annual physical exam Z00.[address] [address] 18 Jul, 18 Well woman exam (no gynecological exam) Z00.00 ; Colon cancer screening Z12.11 ; Breast cancer screening by mammogram Z12.31 ; Autoimmune thyroiditis E06.3 and Fatigue, unspecified type R53.83 [facility] [address] [place] [address] 16 Mar, 18 Anxiety, mild F41.9 [facility] [address] [place] [address] 27 Nov, 17 Asthma, mild intermittent, well-controlled J45.20 [facility] [address] [place] [address] Nov, 17 Pre-diabetes R73.[address] [address] Aug, 17 Pre-diabetes R73.03 [facility] [address] [place] [address] 10 Aug, 17 Autoimmune thyroiditis E06.3 [place] [address] [address] 06 Aug, 2016 Anxiety, mild F41.9 ; Vitami n D deficiency E55.9 and Autoimmune thyroiditis E06.3 [facility] [address] [place] [address] 03 Aug, 17 Well woman exam (no gynecological exam) Z00.00 and Encounter for screening mammogram for breast cancer Z12.31 [place] [address] [address] Jul, [place] [address] [address] June, Anxiety, mild F41.9 ; Vitami n D deficiency E55.9 ; Seasonal allergic rhinitis due to pollen J30.1 ; Asthma, mild intermittent, well- controlled J45.20 and Autoimmune thyroiditis E06.3 [place] [address] [place] [id number] [address] [place] [address] May, [facility] WALK IN [place] [address] [address] Feb, Acute recurrent frontal sinu sitis J01.11 [place] [address] [address] Feb, [place] [address] [address] Feb, [place] [address] [address] Feb, Postprocedural hypothyroidis m E89.0 and Other fatigue R53.83 [facility] WALK IN [facility] [address] [place] [id number] [address] [place] [address] Feb, Acute recurrent pansinusitis J01.41 [place] [address] [address] [place] [id number] [place] [address] 02 Feb, 2016 Postprocedural hypothyroidis m E89.0 and Other fatigue R53.83 [facility] [address] [place], [place] [id number] [address] [place] [address] Jan, Seasonal allergic rhinitis d ue to pollen J30.1 and Hypothyroidism E03.9 [facility] [address] [place] [id number] [address] [place] [address] 05 Jan, 2016 Upper respiratory infection, acute J06.9 [facility] [address] [place], [place] [id number] [address] [place] [address] 10 Dec, 2015 Routine health maintenance Z 00.00 ; Asthma, mild intermittent, well-controlled J45.20 ; Autoimmune thyroiditis E06.3 ; Hypothyroidism E03.9 and Anxiety, mild F41.9 [facility] [address] [place] [address] Sep, 16 [facility] [place] [address] [place] [address] Sep, [address] [address] [address] Sep, 16 [facility] [address] [place] [address] Sep, [address] [address] [address] Jul, [address] [address] [address] Jul, 16 Edema, unspecified type R60.9 and Hypothyroidism E03.9 [facility] [address] [place] [address] 09 Jul, 16 Routine gynecological examination Z01.419 ; Screening for lipid disorders Z13.220 ; Screening for diabetes mellitus Z13.1 ; Dysuria R30.0 and Encounter for screening mammogram for breast cancer Z12.31 [facility] [address] [place] [address] 06 Jul, [address] [address] Jul, 16 Hypothyroidism E03.9 ; Acute right-sided low back pain without sciatica M54.5 ; Screening for lipid disorders Z13.220 and Screening for diabetes mellitus Z13.1 [facility] [address] [place] [id number] [place] [address] 02 Apr, 2015 [facility] [address] [address] Mar, 16 [facility] [address] [address] Feb, 16 [facility] [address] [address] Feb, 16 Left maxillary sinusitis J32.[address] [address] Feb, 16 Dental examination Z01.[address] [address] Sep, 15 Upper respiratory infection 465.[address] [address] 15 Jul, 15 [facility] [address] [address] 11 Jul, [address] [address] 10 Jul, [address] [address] Jul, 15 Anxiety 300.00 ; Asthma 493.90 ; URI, 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.9 and 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 [address] June, [address] [address] June, 15 Asthma 493.90 and Unspecified disorder of thyroid 246.9 [place] [id number] [place] [address] May, [place] [id number] [place] [address] May, [facility] [address] [facility] [id number] [address] [place] [address] Mar, [facility] [address] [facility] [id number] [address] [place] [address] Mar, [facility] [address] [facility] [id number] [address] [place] [address] Mar, [facility] [address] [facility] [id number] [address] [place] [address] Mar, IMMUNIZATIONS No Known Immunizations SOCIAL HISTORY Never Assessed REASON FOR VISIT EMR-[facility] PLAN OF CARE VITAL SIGNS MEDICATIONS Unknown Medications RESULTS No Results PROCEDURES No Known procedures [...]
--- OUTSIDE RECORDS SUMMARY | 2019-10-05 14:07 | XMS REPORT ---
Author Author Jordan GOLDSTEIN Organization [facility] Address [address] [place] [address] Care Team Providers Care College Director Name Role Phone TRISTON KENNEY Unavailable PROBLEMS Type Condition ICD9-CM Code IWT99-BP Code Onset Dates Condition S tatus SNOMED Code Problem Autoimmune thyroiditis E06.3 Active 74785028 Problem Seasonal allergic rhinitis due to pollen J30.1 Active 22116865 Problem Fatigue, unspecified type R53.83 Acti ve 77823560 Problem Vitamin D deficiency E55.9 Active 22222918 Problem Asthma, mild intermittent, well-controlled J45.20 Active 580157562 Problem Anxiety, mild F41.9 Active 102947 04 ALLERGIES No Information ENCOUNTERS Encounter Location Date Diagnosis [facility] [address] [place] [id number] [address] [place] [address] 15 Aug, 2018 [facility] [address] [place] [address] 11 Aug, 19 Nasal sore J34.89 ; Anxiety, mild F41.9 and Breast cancer screening by mammogram Z12.31 [facility] WALK IN [facility] [address] [place] [address] 08 Aug, 2018 Viral gastroenteritis A08.4 [facility] [address] [place] [address] 08 Aug, 19 Well woman exam (no gynecological exam) Z00.[address] [place] [address] 23 May, 19 [facility] [address] [place] [address] 12 May, 2018 Annual physical exam Z00.00 [facility] [address] [place] [address] 18 Raul, 20 18 Well woman exam (no gynecological exam) Z00.00 ; Colon cancer screening Z12.11 ; Breast cancer screening by mammogram Z12.31 ; Autoimmune thyroiditis E06.3 and Fatigue, unspecified type R53.[address] [address] 16 Mar, 18 Anxiety, mild F41.[address] [address] 27 Nov, 17 Asthma, mild intermittent, well-controlled J45.[address] [address] 17 Nov, 17 Pre-diabetes R73.[address] [address] Aug, 17 Pre-diabetes R73.[address] [address] Aug, 17 Autoimmune thyroiditis E06.[address] [address] Aug, Anxiety, mild F41.9 ; Vitami n D deficiency E55.9 and Autoimmune thyroiditis E06.[address] [address] Aug, 17 Well woman exam (no gynecological exam) Z00.00 and Encounter for screening mammogram for breast cancer Z12.31 [place] [id number] [place] [address] Jul, [place] [id number] [address] [place] [address] June, Anxiety, mild F41.9 ; Vitami n D deficiency E55.9 ; Seasonal allergic rhinitis due to pollen J30.1 ; Asthma, mild intermittent, well- controlled J45.20 and Autoimmune thyroiditis E06.3 [place] [id number] [address] [place] [address] May, [facility] [address] [address] Feb, Acute recurrent frontal sinu sitis J01.11 [facility] [address] [facility] [id number] [address] [place] [address] Feb, [facility] [address] [facility] [id number] [address] [place] [address] Feb, [facility] [address] [address] Feb, Postprocedural hypothyroidis m E89.0 and Other fatigue R53.83 [facility] WALK IN [facility] [address] [facility] [id number] [place] [address] Feb, Acute recurrent pansinusitis J01.41 [place] [address] [place] [id number] [place] [address] Feb, Postprocedural hypothyroidis m E89.0 and Other fatigue R53.83 [place] [address] [place] [id number] [address] [place] [address] Jan, Seasonal allergic rhinitis d ue to pollen J30.1 and Hypothyroidism E03.9 [facility] WALK IN [place] [address] [address] Jan, Upper respiratory infection, acute J06.9 [place] [address] [address] [place] [id number] [place] [address] Dec, Routine health maintenance Z 00.00 ; Asthma, mild intermittent, well-controlled J45.20 ; Autoimmune thyroiditis E06.3 ; Hypothyroidism E03.9 and Anxiety, mild F41.9 [facility] [place] [address] [place] [address] Sep, 16 [facility] [place] [address] [place] [address] Sep, 16 [facility] [place] [address] [place] [address] Sep, 16 [facility] [place] [address] [place] [address] Sep, 16 [facility] [place] [address] [place] [address] Jul, 16 [facility] [place] [address] [place] [address] Jul, 16 Edema, unspecified type R60.9 and Hypothyroidism E03.9 [address] [facility] [address] [place] [address] Jul, 16 Routine gynecological examination Z01.419 ; Screening for lipid disorders Z13.220 ; Screening for diabetes mellitus Z13.1 ; Dysuria R30.0 and Encounter for screening mammogram for breast cancer Z12.[address] [address] 06 Jul, 16 [facility] [address] [place] [address] Jul, 16 Hypothyroidism E03.9 ; Acute right-sided low back pain without sciatica M54.5 ; Screening for lipid disorders Z13.220 and Screening for diabetes mellitus Z13.1 [facility] [address] [facility] [id number] [address] [place] [address] Apr, zNadine [address] [address] Mar, [address] [address] Feb, [address] [address] Feb, 16 Left maxillary sinusitis J32.0 [facility] [address] [place] [address] Feb, 16 Dental examination Z01.20 olivierCHJENNIFER [facility] [address] [place] [address] Sep, 15 Upper respiratory infection 465.9 [facility] [address] [place] [address] Jul, [address] [address] Jul, 15 [facility] [place] [address] [place] [address] Jul, 15 [facility] [address] [place] [address] Jul, 15 Anxiety 300.00 ; Asthma 493.90 ; URI, acute 465.9 and 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 [facility] [address] [place] [address] June, [address] [address] June, 15 Asthma 493.90 and Unspecified disorder of thyroid 246.9 [facility] [address] [place] [id number] [place] [address] May, [facility] [address] [place] [id number] [place] [address] May, [facility] [address] [place] [id number] [place] [address] Mar, [facility] [address] [facility] [id number] [address] [place] [address] Mar, [facility] [address] [place] [id number] [place] [address] Mar, [facility] [address] [place] [id number] [address] [place] [address] Mar, IMMUNIZATIONS No Known Immunizations SOCIAL HISTORY Never Assessed REASON FOR VISIT PLAN OF CARE VITAL SIGNS MEDICATIONS Unknown [...]
--- OUTSIDE RECORDS SUMMARY | 2019-10-05 14:07 | XMS REPORT ---
Author Author Jordan COLVIN eClinicalWorks Address Unknown Phone Unavailable Care Team Providers Care Manager Domestic Name Role Phone ANA COLVIN CP Unavailable Allergies, Adverse Reactions, Alerts Substance [...] Problem Acute sinusitis, unspecified 461.9 Active Assessment Left maxillary sinusitis J32.0 Act billie Medications Medication Code System Code Instructions Start Date End Date Status Dosage ProAir HFA [facility] [address]-79 108 (90 Base) MCG/ACT Inhal ation every 4 hrs July 12, 2014 2 puffs as needed Sertraline HCl [facility] [address]-43 50 MG Orally Once a day August 01 15 1 tablet Augmentin [facility] [address]-01 875-125 MG Orally every 12 hrs Ja n 2015Mar 18, 2015 1 tablet Levothyroxine Sodium [facility] [address]-23 125 MCG Orally Once a day 1 tablet Albuterol Sulfate HFA [facility] [address]-78 108 (90 Ba se) MCG/ACT Inhalation every 4 hrs 2 puffs as neede d Advair Diskus [facility] [address]-05 250-50 MCG/DOSE Inhalation Twice a d ay 1 puff Procedures Procedure Coding System Code Date Office Visit, Est Pt., Level 3 CPT-4 33980 J 2015 Vital Signs Date/Time: Mar 08, 2015 Temperature 98.4 F Weight 155.4 lbs Height 5' 0" in BMI 30.35 Index Blood Pressure Diastolic 80 mmHg Blood Pressure Systolic 116 mmHg Cardiac Monitoring Heart Rate 86 bpm Results No Known Results Summary Purpose eClinicalWorks Submission
--- OUTSIDE RECORDS SUMMARY | 2019-10-05 14:07 | XMS REPORT ---
Author Author Jordan GOLDSTEIN Organization [facility] Address [address] [place] [address] Care Team Providers Care Air Hammer Operator Name Role Phone TRISTON KENNEY Unavailable PROBLEMS Type Condition ICD9-CM Code [id number] Code Onset Dates Condition S tatus SNOMED Code Problem Fatigue, unspecified type R53.83 Acti ve 03869486 Problem Vitamin D deficiency E55.9 Active 07133233 Problem Asthma, mild intermittent, well-controlled J45.20 Active 613270705 Problem Mild intermittent asthma with exacerbation J45.21 Active 054528972 Problem Generalized anxiety disorder F41.1 A ctive 12923924 Problem Anxiety, mild F41.9 Active 285603 04 Problem Autoimmune thyroiditis E06.3 Active 43673355 Problem Seasonal allergic rhinitis due to pollen J30.1 Active 54431721 Problem Mild intermittent asthma with exacerbation J45.21 Active 358660575 ALLERGIES No Information ENCOUNTERS Encounter Location Date Diagnosis [facility] [address] [place] [id number] [place] [phone] May, Generalized anxiety disorder F41.1 [facility] [address] [id number] [place] [phone] Apr, Generalized anxiety disorder F41.1 [facility] [address] [id number] [address] 13 Mar, 2019 Influenza-like symptoms R68. 89 ; Fever R50.9 and Sore throat J02.9 [facility] [address] [facility] [id number] [address] [place] [phone] 03 Mar, 2019 Generalized anxiety disorder F41.1 and Family conflict Z63.9 [facility] [address] [place] [address] [facility] [id number] [place] [address] Feb, Conjunctiva disorder H11.9 [facility] [address] [facility] [id number] [address] [place] [phone] Jan, Generalized anxiety disorder F41.1 [place] [address] [address] [facility] [id number] [address] [place] [address] Jan, Generalized anxiety disorder F41.1 and Family conflict Z63.8 [facility] IN [address] [id number] [place] [address] Dec, Acute non-recurrent pansinus itis J01.40 [place] [address] [address] [facility] [id number] [address] [place] [address] Nov, Family conflict Z63.8 [place] [id number] [address] Nov, [address] [id number] [address] 07 Nov, 2018 Acute non-recurrent pansinus itis J01.40 ; Allergic conjunctivitis of both eyes H10.13 and Mild intermittent asthma with exacerbation J45.21 [place] [id number] [place] [address] Aug, [place] [id number] [place] [address] Aug, Nasal sore J34.89 ; Anxiety, mild F41.9 and Breast cancer screening by mammogram Z12.[address] [id number] [place] [address] 08 Aug, 2018 Viral gastroenteritis A08.4 [facility] [place] [address] [place] [id number] [address] Aug, Well woman exam (no gynecological exam) Z00.00 [place] [address] [place] [address] [place] [id number] [address] May, [place] [address] [place] [id number] [place] [address] 12 May, 2018 Annual physical exam Z00.[address] [address] 18 Jul, 18 Well woman exam (no gynecological exam) Z00.00 ; Colon cancer screening Z12.11 ; Breast cancer screening by mammogram Z12.31 ; Autoimmune thyroiditis E06.3 and Fatigue, unspecified type R53.[address] [address] 16 Mar, 18 Anxiety, mild F41.[address] [address] 27 Nov, 17 Asthma, mild intermittent, well-controlled J45.[address] [address] 17 Nov, 17 Pre-diabetes R73.[address] [address] 18 Aug, 17 Pre-diabetes R73.[address] [address] 10 Aug, 17 Autoimmune thyroiditis E06.3 [place] [id number] [place] [address] 06 Aug, 2016 Anxiety, mild F41.9 ; Vitami n D deficiency E55.9 and Autoimmune thyroiditis E06.[address] [address] 03 Aug, 17 Well woman exam (no gynecological exam) Z00.00 and Encounter for screening mammogram for breast cancer Z12.31 [place] [id number] [place] [address] Jul, [place] [id number] [place] [address] June, Anxiety, mild F41.9 ; Vitami n D deficiency E55.9 ; Seasonal allergic rhinitis due to pollen J30.1 ; Asthma, mild intermittent, well- controlled J45.20 and Autoimmune thyroiditis E06.3 [place] [address] [facility] [id number] [address] [place] [address] 07 May, 2016 [facility] WALK IN [facility] [id number] [place] [address] Feb, Acute recurrent frontal sinu sitis J01.11 [place] [address] [place] [id number] [place] [address] Feb, [place] [address] [address] Feb, [place] [address] [place] [id number] [place] [address] Feb, Postprocedural hypothyroidis m E89.0 and Other fatigue R53.83 [facility] WALK IN [facility] [address] [address] Feb, Acute recurrent pansinusitis J01.41 [place] [address] [address] Feb, Postprocedural hypothyroidis m E89.0 and Other fatigue R53.83 [place] [address] [place] [id number] [place] [address] Jan, Seasonal allergic rhinitis d ue to pollen J30.1 and Hypothyroidism E03.9 [facility] IN [facility] [address] [address] 05 Jan, 2016 Upper respiratory infection, acute J06.9 [place] [address] [address] 10 Dec, 2015 Routine health maintenance Z 00.00 ; Asthma, mild intermittent, well-controlled J45.20 ; Autoimmune thyroiditis E06.3 ; Hypothyroidism E03.9 and Anxiety, mild F41.9 [facility] [place] [address] [place] [address] Sep, 16 [facility] [place] [address] [place] [address] Sep, 16 Nadine CAMDEN [address] [place] [address] Sep, 16 [facility] [address] [place] [address] Sep, 16 [facility] [address] [address] Jul[facility] [address] [address] Jul, 16 Edema, unspecified type R60.9 and Hypothyroidism E03.[address] [address] Jul, 16 Routine gynecological examination Z01.419 ; Screening for lipid disorders Z13.220 ; Screening for diabetes mellitus Z13.1 ; Dysuria R30.0 and Encounter for screening mammogram for breast cancer Z12.[address] [address] Jul, [address] [address] Jul, 16 Hypothyroidism E03.9 ; Acute right-sided low back pain without sciatica M54.5 ; Screening for lipid disorders Z13.220 and Screening for diabetes mellitus Z13.1 [facility] [address] [facility] [id number] [address] [place] [address] Apr, Re [address] [address] Mar, [address] [address] Feb, [address] [address] Feb, 16 Left maxillary sinusitis J32.[address] [address] Feb, 16 Dental examination Z01.[address] [address] Sep, 15 Upper respiratory infection 465.[address] [place] [address] 15 Jul, 15 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 [facility] [address] [place] [address] June, 15 [facility] [address] [place] [address] June, 15 Asthma 493.90 and Unspecified disorder of thyroid 246.9 [place] [address] [place] [id number] [place] [address] May, [place] [address] [place] [id number] [place] [address] May, [place] [address] [place] [id number] [place] [address] Mar, [place] [address] [place] [address] Mar, [place] [address] [place] [id number] [place] [address] Mar, [place] [address] [place] [id number] [place] [address] Mar, IMMUNIZATIONS No Known Immunizations SOCIAL HISTORY Never Assessed REASON FOR VISIT PLAN OF CARE VITAL SIGNS Weight 141.1 lbs 2014-03-31 Temperature 97.4 degrees Fahrenheit 2014-03-31 Heart Rate 86 bpm 2014-03-31 Respiratory Rate 18 2014-03-31 Blood pressure systolic 124 mmHg 2014-03-31 Blood pressure diastolic 68 mmHg 2014-03-31 MEDICATIONS Unknown Medications RESULTS No Results PROCEDURES [...]
--- OUTSIDE RECORDS SUMMARY | 2019-10-05 14:08 | XMS REPORT ---
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
--- OUTSIDE RECORDS SUMMARY | 2019-10-05 14:08 | XMS REPORT ---
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
--- OUTSIDE RECORDS SUMMARY | 2019-10-05 14:08 | XMS REPORT ---
Author Author Jordan NEELY Organization [facility] Address [address] [place] [address] Care Team Providers Care [employer] Name Role Phone NURIA NEELY Unavailable PROBLEMS Type Condition ICD9-CM Code [id number] Code Onset Dates Condition S tatus SNOMED Code Problem Seasonal allergic rhinitis due to pollen J30.1 Active 13827498 Problem Autoimmune thyroiditis E06.3 Active 69568070 Problem Vitamin D deficiency E55.9 Active 02672097 Problem Fatigue, unspecified type R53.83 Acti ve 75521021 Problem Anxiety, mild F41.9 Active 342010 04 Problem Asthma, mild intermittent, well-controlled J45.20 Active 174602921 ALLERGIES Unknown Allergies SOCIAL HISTORY No smoking Hx information available PLAN OF CARE VITAL SIGNS MEDICATIONS Unknown Medications RESULTS No Results PROCEDURES No Known procedures IMMUNIZATIONS No Known Immunizations
--- OUTSIDE RECORDS SUMMARY | 2019-10-05 14:08 | XMS REPORT | Continuity of Care Document ---
Demographics Preferred Language Unknown Marital Status Unknown Jain Affiliation Unknown Race Unknown Ethnic Group Unknown Author Organization Unknown Address Unknown Phone Unavailable Allergies Active Description Code Type Severity Reaction Onset Reported/Identified Relationship to Patient Clinical Status Yes erythromycin base Drug Allergy N/A N/A 03/31/2014 Yes Keflex Drug Allergy N/A N/A 03/31/2014 Yes Mucinex Drug Allergy N/A N/A 03/31/2014 Medications There is no data. Problems Date Dx Coded Attending Type Code Diagnosis Diagnosed By 03/31/2014 KENNEY GOLDSTEIN APRN 461 .9 SINUSITIS ACUTE 11/03/2018 Zoie Colvin Reason For Visit Z12.31 Encounter for screening mammogram for ma lignant neoplasm of breast Procedures There is no data. Results Test Result Range Thyroid Castro Profile - 02/22/16 12:29 TSH 0.844 uIU/mL 0.450-4.500 Vitamin D, 25-Hydroxy - 03/14/16 10:48 Vitamin D, 25-Hydroxy 14.9 ng/mL 30.0-10 0.0 PTH, Intact - 03/14/16 10:48 PTH, Intact 38 pg/mL 15-65 CBC With Differential/Platelet - 7 10:32 WBC 5.3 x10E3/uL 3.4-10.8 RBC 4.61 x10E6/uL 3.77-5.28 Hemoglobin 13.9 g/dL 11.1-15.9 Hematocrit 41.0 % 34.0-46.6 MCV 89 fL 79-97 MCH 30.2 pg 26.6-33.0 MCHC 33.9 g/dL 31.5-35.7 RDW 14.9 % 12.3-15.4 Platelets 302 x10E3/uL 150-379 Neutrophils 63 % Lymphs 22 % Monocytes 9 % Eos 5 % Basos 1 % Neutrophils (Absolute) 3.3 x10E3/uL 1.4- 7.0 Lymphs (Absolute) 1.2 x10E3/uL 0.7-3.1 Monocytes(Absolute) 0.5 x10E3/uL 0.1-0.9 Eos (Absolute) 0.3 x10E3/uL 0.0-0.4 Baso (Absolute) 0.1 x10E3/uL 0.0-0.2 Immature Granulocytes 0 % Immature Grans (Abs) 0.0 x10E3/uL 0.0-0. 1 Comp. Metabolic Panel (14) - 08/29/16 10 :32 Glucose, Serum 87 mg/dL 65-99 BUN 11 mg/dL 6-24 Creatinine, Serum 0.68 mg/dL 0.57-1.00 eGFR If NonAfricn Am 99 mL/min/1.73 >59 eGFR If Africn Am 115 mL/min/1.73 >5 9 BUN/Creatinine Ratio 16 9-23 Sodium, Serum 142 mmol/L 134-144 Potassium, Serum 4.0 mmol/L 3.5-5.2 Chloride, Serum 101 mmol/L 96-106 Carbon Dioxide, Total 22 mmol/L 18-29 Calcium, Serum 9.1 mg/dL 8.7-10.2 Protein, Total, Serum 6.7 g/dL 6.0-8.5 Albumin, Serum 4.1 g/dL 3.5-5.5 Globulin, Total 2.6 g/dL 1.5-4.5 A/G Ratio 1.6 1.2-2.2 Bilirubin, Total 0.6 mg/dL 0.0-1.2 Alkaline Phosphatase, S 73 IU/L 39-117 AST (SGOT) 18 IU/L 0-40 ALT (SGPT) 14 IU/L 0-32 Lipid Panel - 08/29/16 10:32 Cholesterol, Total 199 mg/dL 100-199 Triglycerides 53 mg/dL 0-149 HDL Cholesterol 79 mg/dL >39 VLDL Cholesterol Andrés 11 mg/dL 5-40 LDL Cholesterol Calc 109 mg/dL 0-99 Hemoglobin A1c - 08/29/16 10:32 Hemoglobin A1c 5.9 % 4.8-5.6 Vitamin D, 25-Hydroxy - 08/29/16 10:32 Vitamin D, 25-Hydroxy 27.4 ng/mL 30.0-10 0.0 Thyroid Castro Profile - 08/29/16 10:32 TSH 1.720 uIU/mL 0.450-4.500 TSH - 08/11/17 09:59 TSH 0.43 mIU/L NR LIPID PANEL - 06/05/18 11:08 CHOLESTEROL, TOTAL 200 mg/dL <200 HDL CHOLESTEROL 94 mg/dL >50 TRIGLYCERIDES 48 mg/dL <150 LDL-CHOLESTEROL 92 mg/dL (calc) NRG CHOL/HDLC RATIO 2.1 (calc) <5.0 NON HDL CHOLESTEROL 106 mg/dL (calc) <13 0 CMP - 06/05/18 11:08 GLUCOSE 84 mg/dL 65-99 UREA NITROGEN (BUN) 15 mg/dL 7-25 CREATININE 0.72 mg/dL 0.50-1.05 eGFR NON-AFR. GUYANESE 94 mL/min/1.73m2 > OR = 60 eGFR 108 mL/min/1.73m2 > OR = 60 BUN/CREATININE RATIO NOT APPLICABLE (calc) 6-22 SODIUM 141 mmol/L 135-146 POTASSIUM 3.9 mmol/L 3.5-5.3 CHLORIDE 104 mmol/L 98-110 CARBON DIOXIDE 27 mmol/L 20-32 CALCIUM 9.4 mg/dL 8.6-10.4 PROTEIN, TOTAL 7.2 g/dL 6.1-8.1 ALBUMIN 4.5 g/dL 3.6-5.1 GLOBULIN 2.7 g/dL (calc) 1.9-3.7 ALBUMIN/GLOBULIN RATIO 1.7 (calc) 1.0-2. 5 BILIRUBIN, TOTAL 0.9 mg/dL 0.2-1.2 ALKALINE PHOSPHATASE 75 U/L 33-130 AST 22 U/L 10-35 ALT 23 U/L 6-29 TSH - 06/05/18 11:08 TSH 0.75 mIU/L 0.40-4.50 CULTURE, NASAL/SINUS - 09/03/18 11:56 CULTURE, CHEMICAL CHECKER/NASAL SEE NOTE NRG [facility] - 09/22/19 10:28 TSH 3.59 mIU/L 0.40-4.50 Encounters ACCT No. Visit Date/Time Discharge Status Pt. Type Provider Facility Loc./Unit Complaint [id number] 03/15/2016 18:06:00 Document Registration [id number] 11/03/2018 14:51:46 9 23:59:59 DIS Outpatient Zoie Colvin [facility] GIA[facility] RAD screening [id number] 09/22/2017 14:01:37 8 23:59:59 DIS Outpatient Zoie Colvin [facility] G[facility] RAD screening [id number] 09/18/2016 14:20:13 7 23:59:59 DIS Outpatient Zoie Colvin [facility] G[facility] RAD screening [id number] 08/30/2016 13:05:00 Document Registration [id number] 02/23/2016 10:05:00 Document Registration [id number] 03/31/2014 13:24:00 03/31/2014 23:59: 59 CLS Outpatient KENNEY GOLDSTEIN APRN [id number] 09/22/2019 09:40:00 09/22/2019 23:59:5 9 CLS Outpatient ZOIE COLVIN PA-C [facility] [address] [place] [id number] 09/22/2019 09:40:00 Document Registration [id number] 09/03/2018 11:56:00 Document Registration [id number] 06/05/2018 07:30:00 Document Registration [id number] 08/11/2017 08:00:00 Document Registration
--- OUTSIDE RECORDS SUMMARY | 2019-10-05 14:08 | XMS REPORT ---
Author Author Jordan NEELY Organization [facility] Address [address] [place] [address] Care Team Providers Care Automotive Glass Installer Name Role Phone NURIA NEELY Unavailable PROBLEMS Type Condition ICD9-CM Code [id number] Code Onset Dates Condition S tatus SNOMED Code Problem Seasonal allergic rhinitis due to pollen J30.1 Active 36819752 Problem Autoimmune thyroiditis E06.3 Active 29915454 Problem Fatigue, unspecified type R53.83 Acti ve 50635216 Problem Vitamin D deficiency E55.9 Active 37205793 Problem Anxiety, mild F41.9 Active 539711 04 Problem Asthma, mild intermittent, well-controlled J45.20 Active 730340750 ALLERGIES Substance Reaction Event Type Date Status Mucinex Unknown Drug Allergy Jan, Active Levaquin Unknown Drug Allergy Jan, Active Keflex Unknown Drug Allergy Jan, Active Ibuprofen Unknown Drug Allergy Jan, Active Erythromycin Unknown Drug Allergy Jan, Active SOCIAL HISTORY No smoking Hx information available PLAN OF CARE Activity Details Follow Up 3 Months Reason:chm VITAL SIGNS Height 5' 0" in 2016-02-22 Weight 162 lbs 2016-02-22 Temperature 98.9 degrees Fahrenheit 2016-02-22 Heart Rate 100 bpm 2016-02-22 Respiratory Rate 20 2016-02-22 BMI 31.64 kg/m2 2016-02-22 Blood pressure systolic 126 mmHg 2016-02-22 Blood pressure diastolic 88 mmHg 2016-02-22 MEDICATIONS Medication Instructions Dosage Frequency Start Date End Date Duration S tatus Advair Diskus 250-50 MCG/DOSE Inhalation Twice a day 1 puff 12h Active Colon-Aid Active Hydrochlorothiazide 12.5 MG Orally Once a day 1 tablet 24h 23 Jul, 2 016 Active Fluticasone Propionate 50 MCG/ACT Nasally Once a day 1 spray in each nostril 24h Jan, 90 days Active Levothyroxine Sodium 100 MCG Orally Once a day 1 tablet 24h Active Venlafaxine HCl ER 75 MG Orally Once a day 1 capsule with food 24h Jul, Active ProAir HFA 108 (90 Base) MCG/ACT Inhalation every 4 hrs 2 puffs as needed 4h 10 Dec, 2015 Active Fexofenadine HCl 180 MG Orally Once a day 1 tablet as needed 24h Active Allergy Relief 10 MG Orally Once a day 1 tablet 24h Active Cetirizine HCl 10 mg Orally Once a day 1 tablet 24h Jan, 6 25 Oct, 2016 90 days Active Loratadine 10 mg Orally Once a day 1 tablet 24h Jan, Apr, 90 days Active RESULTS Name Result Date Reference Range THYROID ANALYZER 2016-02-22 TSH 0.844 0.450-4.500 PROCEDURES Procedure Date Ordered Related Diagnosis Body Site [facility] Feb 22, 2016 VENIPUNCT, ROUTINE* Feb 22, 2016 THER/PROPH/DIAG INJ, SC/IM Feb 22, 2016 DEPO MEDROL 40 MG/ML Feb 22, 2016 Office Visit, Est Pt., Level 3 Feb 22, 2016 IMMUNIZATIONS Vaccine Route Administration Date Status DEPO MEDROL 40 MG/ML IM Intramuscular Feb 22, 2016 Administer ed
--- OUTSIDE RECORDS SUMMARY | 2019-10-05 14:08 | XMS REPORT ---
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 Problem Asthma 493.90 Active Problem Anxiety 300.00 Active Problem Acute sinusitis, unspecified 461.9 Active Assessment Upper respiratory infection 465.9 Active Medications Medication Code System Code Instructions Start Date End Date Status Dosage Zithromax Tri-Gómez [facility] [address]-80 500 MG Orally Once a day A 2014Oct 23, 2014 one tab Ativan [facility] [address]-73 0.5 MG Orally 3 times a day August 01, 2014 1 tablet as needed Sertraline HCl [facility] [address]-43 50 MG Orally Once a day August 01 15 1 tablet Advair Diskus [facility] [address]-19 250-50 MCG/DOSE Inhalation Twice a d ay 1 puff Levothyroxine Sodium [facility] [address]-90 125 MCG Orally Once a day 1 tablet Procedures Procedure Coding System Code Date Office Visit, Est Pt., Level 3 CPT-4 60875 A 2014 Vital Signs Date/Time: Oct 20, 2014 Temperature 98.3 F Weight 144 lbs Height 5' 0" in BMI 28.12 Index Blood Pressure Diastolic 70 mmHg Blood Pressure Systolic 110 mmHg Cardiac Monitoring Heart Rate 72 bpm Results No Known Results Summary Purpose eClinicalWorks Submission
--- OUTSIDE RECORDS SUMMARY | 2019-10-05 14:08 | XMS REPORT ---
Author Jordan Vivar eClinicalWorks Address Unknown Phone Unavailable Care Team Providers Care Food Vendor Name Role Phone FERNANDA RAYMUNDO CP Unavailable Allergies, Adverse Reactions, Alerts Substance Reaction Event Type Mucinex Info Not Available Drug Allergy Keflex Info Not Available Drug Allergy Ibuprofen Info Not Available Drug Allergy Erythromycin Base Info Not Available Drug Allergy Problems Problem Type Condition Code Onset Dates Condition Statu s Assessment Screening for lipid disorders Z13.220 Active Assessment Hypothyroidism E03.9 Active Assessment Acute right-sided low back pain without sciatica M54.5 Active Assessment Screening for diabetes mellitus Z13.1 Active Problem Hypothyroidism E03.9 Active Problem Acute right-sided low back pain without sciatica M54.5 Active Problem Other asthma J45.998 Active Problem Asthma 493.90 Active Problem Acute sinusitis, unspecified 461.9 Active Problem Anxiety 300.00 Active 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 Medications Medication Code System Code Instructions Start Date End Date Status Dosage Levothyroxine Sodium [facility] [address]-49 125 MCG Orally Once a day 1 tablet Advair Diskus [facility] [address]-54 250-50 MCG/DOSE Inhalation Twice a d ay 1 puff Naproxen [facility] [address]-53 500 MG Orally every 12 hrs x 2 weeks then prn July 26, 2015 1 tablet ProAir HFA [facility] [address]-79 108 (90 Base) MCG/ACT Inhal ation every 4 hrs July 12, 2014 2 puffs as needed Procedures Procedure Coding System Code Date VENIPUNCT, ROUTINE* CPT-4 65677 July 25 6 URINALYSIS, AUTO, W/O SCOPE CPT-4 20479 July 26, 2015 [facility] July Office Visit, Est Pt., Level 3 CPT-4 39232 J 2015 Vital Signs Date/Time: July 26, 2015 Cardiac Monitoring Heart Rate 72 bpm Weight 158.6 lbs Height 5' 0" in BMI 30.97 Index Blood Pressure Diastolic 76 mmHg Blood Pressure Systolic 114 mmHg Results No Known Results Summary Purpose eClinicalWorks Submission
--- OUTSIDE RECORDS SUMMARY | 2019-10-05 14:08 | XMS REPORT ---
Author Author Jordan RAYMUNDO eClinicalWorks Address Unknown Phone Unavailable Care Team Providers Care Epilepsy Physician Name Role Phone FERNANDA RAYMUNDO CP Unavailable Allergies No Known Allergies Problems [...] Instructions Start Date End Date Status Dosage Venlafaxine HCl ER [facility] [address]-26 37.5 MG by or al route Once a day x 2 weeks. Then increase to 2 capsules daily August 21, 2015 Take 1 capsule with food Results No Known Results Summary Purpose eClinicalWorks Submission
[2019-10-05] MEDS ORDERED: HYDROcodone/APAP 5 MG/325 MG (LORTAB) TAB PO ONE (14:15)
[2019-10-05 14:17] VITALS: BP 129/90
== END 2019-10-05 14:17 | disposition home or self-care (01) ==
LOC: EDUNIT# 13:01 → ER FS 13:04
DX: S92.322A Displaced fracture of second metatarsal bone, left foot, initial encounter for closed fracture (principal); X58.XXXA Exposure to other specified factors, initial encounter
CPT/HCPCS: 73630

== ENCOUNTER → 2019-11-23 | Outpatient (CLI) | payer BC ==
[~2019-11-23] MED LIST: DICL75TA2 PO
--- NOTE | 2019-11-23 15:23 | Diagnostic Imaging Report ---
INDICATION: Postmenopausal COMPARISON: None FINDINGS: The bone mineral density of the hips and spine was measured. The T score for the spine is -3.8. This does indicate osteoporosis. The T score for the left femoral neck is -2.5. This value suggests borderline osteoporosis. The T score for the left hip is -2.2 and for the right hip -2.4. The T score for the right femoral neck is also -2.4. These values do suggest severe osteopenia. AP Spine L1-L4: [BMD (g/cm2): 0.749] [T-Score: -3.8] [Z-Score: -3.0] [BMD Previous: NA] [BMD % Change: NA] LT Hip Neck: [BMD (g/cm2): 0.690] [T-Score: -2.5] [Z-Score: -1.5] LT Hip Total: [BMD (g/cm2):0.733] [T-Score:-2.2] [Z-Score: -1.6] [BMD Previous: NA] [BMD % Change: NA] RT Hip Neck: [BMD (g/cm2):0.710] [T-Score:-2.4] [Z-Score:-1.4] RT Hip Total: [BMD (g/cm2):0.708] [T-score:-2.4] [Z-Score:-1.8] [BMD Previous:NA] [BMD % Change:NA] *Indicates significant change from prior examination based on 95% confidence level. World Health Organization criteria for BMD interpretation classify patients as Normal (T-score at or above -1.0), Osteopenic (T-score between -1.0 and -2.5) or Osteoporotic (T-score at or below -2.5). LIMITATIONS AND MODIFICATION: None. FRACTURE RISK (FRAX SCORE): The ten year probability of (%): Major Osteoporotic Fracture: [10.2] Hip Fracture: [1.9] IMPRESSION: 1. There is osteoporosis of the spine and borderline osteoporosis of the left femoral neck. 2. There is severe osteopenia of both hip joints and of the right femoral neck. 3. See below National Osteoporosis Foundation guidelines on when to potentially initiate pharmacologic therapy. Based on the National Osteoporosis Foundation Guidelines, pharmacologic treatment should be initiated in any of the following, unless clinical conditions suggest otherwise: * Any patient with prior fragility fracture of the hip or vertebrae. A spine fracture indicates 5X risk for subsequent spine fracture and 2X risk for subsequent hip fracture. * Osteoporosis (T-score <-2.5). * Postmenopausal women and men age 50 and older with low bone mass/osteopenia (T-score between -1.0 and -2.5) by DXA and 10-year major osteoporotic fracture greater than 20% or a 10-year probability of hip fracture greater than 3%. These fracture risks are supplied above in the FRAX score, if applicable. * Clinician judgement and/or patient preferences may indicate treatment for people with 10-year fracture probabilities above or below these levels. Dictated by: Dictated on workstation # [id number]
== END ==
LOC: RAD 14:23
PROVIDERS: ATTEND Podiatrist Foot & Ankle Surgery
DX: M81.0 Age-related osteoporosis without current pathological fracture (principal); M85.89 Other specified disorders of bone density and structure, multiple sites; S92.309A Fracture of unspecified metatarsal bone(s), unspecified foot, initial encounter for closed fracture; Z78.0 Asymptomatic menopausal state
CPT/HCPCS: 77080

== ENCOUNTER 2020-05-15 20:32 | Emergency (ER) | payer BC ==
[~2020-05-15] VITALS: Ht 152.4 cm; Wt 75.7 kg
--- NOTE | 2020-05-15 20:45 | ED Abdominal Pain ---
General Stated Complaint: VOMITING,DIARRHEA History of Present Illness Date Seen by Provider: May 15, 2020 Time Seen by Provider: 20:45 Initial Comments 60-year-old female presents with nausea vomiting diarrhea. Patient reports her last episode diarrhea was about 2 days ago. Patient reports that she been having difficulty keeping anything down for the last 2 or 3 days. Still a bit of a headache. Feels like she is got a lot of "phlegm and yellowish emesis. She has some mild belly cramping but no real pain. No reports of fevers. No cough. No shortness of breath. No chest pain. No known exposures to any illness with no other family members with illness Allergies and Home Medications Allergies Coded Allergies: erythromycin base (Verified Allergy, Unknown, 10/05/19) ibuprofen (Verified Allergy, Unknown, 10/05/19) levofloxacin (Verified Allergy, Unknown, 10/05/19) Home Medications Diclofenac Sodium 75 Mg Tablet.dr, 75 MG PO BID Prescribed by: KINGSLEY HALEY on 10/05/19 1401 Patient Home Medication List Home Medication List Reviewed: Yes Review of Systems Review of Systems Constitutional: No chills, No fever; malaise EENTM: No Symptoms Reported Respiratory: Denies Cough, Denies Shortness of Air Cardiovascular: Denies Chest Pain, Denies Irregular Heart Rate, Denies Lightheadedness Gastrointestinal: See HPI; Denies Abdomen Distended, Denies Abdominal Pain; Diarrhea, Nausea, Vomiting Musculoskeletal: no symptoms reported Skin: no symptoms reported Psychiatric/Neurological: No Symptoms Reported Endocrine: No Symptoms Reported Hematologic/Lymphatic: No Symptoms Reported Past Rppoaeb-Kgdxpl-Zivisp Hx Past Med/Social Hx: Reviewed Nursing Past Med/Soc Hx Patient Social History 2nd Hand Smoke Exposure: No Recent Hopitalizations: No Seasonal Allergies Seasonal Allergies: No Past Medical History Surgeries: Yes (D&C(2), wisdom teeth, rt arm pin, rt collarbone plate) Thyroidectomy Respiratory: No Cardiac: No (cholesterol was a little high) Neurological: No Genitourinary: No Gastrointestinal: No Musculoskeletal: No Endocrine: Yes (thyroidectomy) Hypothyroidsim HEENT: No Cancer: No Psychosocial: No Integumentary: No Blood Disorders: No Physical Exam Vital Signs Vital Signs - First Documented 05/15/20 20:53 Temp 36.8 Pulse 93 Resp 14 B/P (MAP) 150/86 (107) Pulse Ox 100 O2 Delivery Room Air Capillary Refill : Height/Weight/BMI Height: '" Weight: lbs. oz. kg; 31.00 BMI Method: General Appearance: no apparent distress Neck: full range of motion, supple Respiratory: lungs clear, normal breath sounds Cardiovascular: normal peripheral pulses, regular rate, rhythm Gastrointestinal: soft; No distended, No guarding, No rebound; tenderness (Mild diffuse tenderness to palpation ) Extremities: normal range of motion, non-tender Back: no CVA tenderness, no vertebral tenderness Neurologic/Psychiatric: alert, normal mood/affect, oriented x 3 Skin: normal color, warm/dry Progress/Results/Core Measures Results/Orders Lab Results Laboratory Tests Test 05/15/20 20:53 05/15/20 21:05 Range/Units White Blood Count 7.3 4.3-11.0 10^3/uL Red Blood Count 4.74 4.35-5.85 10^6/uL Hemoglobin 15.1 11.5-16.0 G/DL Hematocrit 44 35-52 % Mean Corpuscular Volume 93 80-99 FL Mean Corpuscular Hemoglobin 32 25-34 PG Mean Corpuscular Hemoglobin Concent 34 32-36 G/DL Red Cell Distribution Width 12.7 10.0-14.5 % Platelet Count 325 130-400 10^3/uL Mean Platelet Volume 9.0 7.4-10.4 FL Immature Granulocyte % (Auto) 0 % Neutrophils (%) (Auto) 62 42-75 % Lymphocytes (%) (Auto) 22 12-44 % Monocytes (%) (Auto) 10 0-12 % Eosinophils (%) (Auto) 5 0-10 % Basophils (%) (Auto) 1 0-10 % Neutrophils # (Auto) 4.6 1.8-7.8 X 10^3 Lymphocytes # (Auto) 1.6 1.0-4.0 X 10^3 Monocytes # (Auto) 0.7 0.0-1.0 X 10^3 Eosinophils # (Auto) 0.4 H 0.0-0.3 10^3/uL Basophils # (Auto) 0.1 0.0-0.1 10^3/uL Immature Granulocyte # (Auto) 0.0 0.0-0.1 10^3/uL Sodium Level 137 135-145 MMOL/L Potassium Level 4.1 3.6-5.0 MMOL/L Chloride Level 100 98-107 MMOL/L Carbon Dioxide Level 28 21-32 MMOL/L Anion Gap 9 5-14 MMOL/L Blood Urea Nitrogen 12 7-18 MG/DL Creatinine 0.77 0.60-1.30 MG/DL Estimat Glomerular Filtration Rate > 60 BUN/Creatinine Ratio 16 Glucose Level 128 H 70-105 MG/DL Calcium Level 9.4 8.5-10.1 MG/DL Corrected Calcium 9.2 8.5-10.1 MG/DL Total Bilirubin 0.5 0.1-1.0 MG/DL Aspartate Amino Transf (AST/SGOT) 18 5-34 U/L Alanine Aminotransferase (ALT/SGPT) 14 0-55 U/L Alkaline Phosphatase 71 40-136 U/L C-Reactive Protein 3.75 H <0.50 MG/DL Total Protein 7.5 6.4-8.2 GM/DL Albumin 4.3 3.2-4.5 GM/DL Lipase 31 8-78 U/L Urine Color YELLOW Urine Clarity CLEAR Urine pH 7.5 5-9 Urine Specific [place] 1.015 L 1.016-1.022 Urine Protein NEGATIVE NEGATIVE Urine Glucose (UA) NEGATIVE NEGATIVE Urine Ketones NEGATIVE NEGATIVE Urine Nitrite NEGATIVE NEGATIVE Urine Bilirubin NEGATIVE NEGATIVE Urine Urobilinogen 0.2 < = 1.0 MG/DL Urine Leukocyte Esterase NEGATIVE NEGATIVE Urine RBC (Auto) NEGATIVE NEGATIVE Urine RBC NONE /HPF Urine WBC 0-2 /HPF Urine Squamous Epithelial Cells 5-10 /HPF Urine Crystals NONE /LPF Urine Bacteria TRACE /HPF Urine Casts NONE /LPF Urine Mucus NEGATIVE /LPF Urine Culture Indicated NO Micro Results Microbiology 05/15/20 Influenza Types A,B Antigen ([facility]) - Final, Complete My Orders Orders - ANGEL MONTAGUE DO Acute Abd Series (05/15/20 20:48) Cbc With Automated Diff (05/15/20 20:48) Comprehensive Metabolic Panel (05/15/20 20:48) Lipase (05/15/20 20:48) Ua Culture If Indicated (05/15/20 20:48) Influenza A And B Antigens (05/15/20 20:48) Crp Fs (05/15/20 20:48) Ondansetron Injection (Zofran Injectio (05/15/20 21:00) Lactated Ringers (Lr 1000 Ml Iv Solution (05/15/20 20:48) Famotidine Injection (Pepcid Injection) (05/15/20 20:48) Medications Given in ED Current Medications Medications Dose Ordered Sig/Landon Route Start Time Stop Time Status Last Admin Dose Admin Ondansetron HCl 4 mg ONCE ONCE IVP 05/15/20 21:00 05/15/20 21:01 DC 05/15/20 21:06 4 MG Vital Signs/I&O 05/15/20 20:53 Temp 36.8 Pulse 93 Resp 14 B/P (MAP) 150/86 (107) Pulse Ox 100 O2 Delivery Room Air Progress Progress Note : Progress Note Patient reports she is feeling better following some IV fluids. Labs, x-rays and physical exam not show any significant abnormalities. I will discharge her home with some Zofran prescription. She should start a clear liquid diet and advance as tolerated. She is discharged home in stable condition. Diagnostic Imaging Diagonstic Imaging: Xray Plain Films/CT/US/NM/MRI: abdomen Comments [facility], [place] NAME: ORAL HENDERSON [facility] REC#: [id number] PT STATUS: REG ER : 1960 PHYSICIAN: ANGEL MONTAGUE DO ADMIT DATE: 05/15/20/ER FS Draft Date of Exam:05/15/20 ACUTE ABD SERIES INDICATION: Nausea, vomiting and diarrhea for several days. TECHNIQUE: Single view chest with supine and upright radiographs of the abdomen. CORRELATION STUDY: None FINDINGS: Heart size upper limits normal. Vasculature within normal limits. Lung taylor are clear. Prior traumatic change of the right chest, clavicle and proximal humerus. Cholecystectomy clips in the right upper quadrant. Mild/moderate stool retention. A few gas-filled loops of small bowel are present. However, no abnormally dilated loops of bowel or findings to suggest high degree obstruction. IMPRESSION: 1. Negative for acute cardiopulmonary abnormality. 2. Nonobstructive-appearing bowel gas pattern. Mild ileus pattern not excluded. Does appear to be at least mild stool retention without large fecal impaction. Dictated on workstation # [id number] Reviewed: Reviewed by Me, Reviewed/Discussed Departure Impression Primary Impression: Gastroenteritis Disposition: HOME, SELF-CARE Condition: Stable Departure-Patient Inst. Referrals: NO,LOCAL PHYSICIAN (PCP) Primary Care Physician ANA COLVIN (Family) Primary Care Physician Patient Instructions: CLEAR LIQUID DIET ADULT/CHILD, [id number] Scripts Ondansetron (Ondansetron Odt) 4 Mg Tab.rapdis 4 MG PO Q6H PRN for NAUSEA/VOMITING, #20 TAB 0 Refills Prov: ANGEL MONTAGUE DO 05/15/20 ANGEL MONTAGUE DO May 15, 2020 20:45
[2020-05-15] MEDS ORDERED: FAMOTIDINE 20MG/2ML IV (PEPCID) IV STA (20:48)
[2020-05-15] MEDS ORDERED: LACTATED RINGERS 1,000 ML IV STA (20:48)
[2020-05-15] MEDS ORDERED: ONDANSETRON 4 MG/2 ML (SDV) Z0FRAN IVP ONE (21:00)
[2020-05-15 21:08] LABS: BASOPHILS % (AUTO) 1 % (0-10); EOSINOPHILS % (AUTO) 5 % (0-10); HEMATOCRIT 44 % (35-52); HEMOGLOBIN 15.1 G/DL (11.5-16.0); LYMPHOCYTES % (AUTO) 22 % (12-44); MEAN CORPUSCULAR HEMOGLOBIN 32 PG (25-34); MEAN CORPUSCULAR HGB CONC 34 G/DL (32-36); MEAN CORPUSCULAR VOLUME 93 FL (80-99); MONOCYTES % (AUTO) 10 % (0-12); NEUTROPHILS % (AUTO) 62 % (42-75); PLATELET COUNT 325 10^3/uL (130-400); WHITE BLOOD COUNT 7.3 10^3/uL (4.3-11.0)
[2020-05-15 21:09] LABS: BASOPHILS # (AUTO) 0.1 10^3/uL (0.0-0.1); EOSINOPHILS # (AUTO) 0.4 10^3/uL (0.0-0.3); LYMPHOCYTES # (AUTO) 1.6 X 10^3 (1.0-4.0); MONOCYTES # (AUTO) 0.7 X 10^3 (0.0-1.0); NEUTROPHILS # (AUTO) 4.6 X 10^3 (1.8-7.8)
[2020-05-15 21:28] LABS: BACTERIA,URINE TRACE /HPF; BILIRUBIN,URINE NEGATIVE (NEGATIVE); CLARITY,URINE CLEAR; COLOR,URINE YELLOW; GLUCOSE, URINE (UA) NEGATIVE (NEGATIVE); KETONES,URINE NEGATIVE (NEGATIVE); LEUKOCYTE ESTERASE ,URINE NEGATIVE (NEGATIVE); NITRITE,URINE NEGATIVE (NEGATIVE); PH,URINE 7.5 (5-9); PROTEIN,URINE NEGATIVE (NEGATIVE); WBC,URINE 0-2 /HPF
[2020-05-15 21:29] LABS: POTASSIUM 4.1 MMOL/L (3.6-5.0); SODIUM 137 MMOL/L (135-145)
[2020-05-15 21:30] LABS: ALANINE AMINOTRANSFERASE 14 U/L (0-55); ALBUMIN 4.3 GM/DL (3.2-4.5); ALKALINE PHOSPHATASE 71 U/L (40-136); BILIRUBIN,TOTAL 0.5 MG/DL (0.1-1.0); BUN/CREATININE RATIO 16; CALCIUM 9.4 MG/DL (8.5-10.1); CARBON DIOXIDE 28 MMOL/L (21-32); CHLORIDE 100 MMOL/L (98-107); CREATININE SERUM 0.77 MG/DL (0.60-1.30); GFR ESTIMATED > 60; GLUCOSE 128 MG/DL (70-105); LIPASE 31 U/L (8-78); TOTAL PROTEIN 7.5 GM/DL (6.4-8.2)
--- NOTE | 2020-05-15 21:39 | Diagnostic Imaging Report ---
INDICATION: Nausea, vomiting and diarrhea for several days. TECHNIQUE: Single view chest with supine and upright radiographs of the abdomen. CORRELATION STUDY: None FINDINGS: Heart size upper limits normal. Vasculature within normal limits. Lung taylor are clear. Prior traumatic change of the right chest, clavicle and proximal humerus. Cholecystectomy clips in the right upper quadrant. Mild/moderate stool retention. A few gas-filled loops of small bowel are present. However, no abnormally dilated loops of bowel or findings to suggest high degree obstruction. IMPRESSION: 1. Negative for acute cardiopulmonary abnormality. 2. Nonobstructive-appearing bowel gas pattern. Mild ileus pattern not excluded. Does appear to be at least mild stool retention without large fecal impaction. Dictated by: Dictated on workstation # [id number]
[2020-05-15] MEDS ORDERED: ONDA4TAB11 PO (21:46)
[2020-05-15 22:00] VITALS: BP 150/86
== END 2020-05-15 22:00 | disposition home or self-care (01) ==
LOC: EDUNIT# 20:32 → ER FS 20:34
DX: K52.9 Noninfective gastroenteritis and colitis, unspecified (principal); Z88.1 Allergy status to other antibiotic agents; Z88.6 Allergy status to analgesic agent
CPT/HCPCS: 36415; 74022; 80053; 81000; 83690; 85025; 86141; 87804

== ENCOUNTER 2020-12-14 09:08 | Outpatient (CLI) | payer BC ==
[~2020-12-14] VITALS: Ht 152.4 cm; Wt 75.7 kg
[2020-12-14 09:00] VITALS: BP 140/91
[~2020-12-14 09:08] MED LIST changes: +ONDA4TAB11 PO
[2020-12-14 09:10] VITALS: BP 140/91
[2020-12-14] MEDS ORDERED: ONDANSETRON 4 MG/2 ML (SDV) Z0FRAN IV PRN (09:30)
[2020-12-14] MEDS ORDERED: EPINEPHrine INJECTION 1 MG/ML AMP IM PRN (09:30)
[2020-12-14] MEDS ORDERED: CASIRIVIMAB/IMDEVIMAB 1,200 MG in NS (IVPB) 250 ML IV ONE (09:30)
[2020-12-14] MEDS ORDERED: diphenhydrAMINE 50 MG/ML INJ (BENADRYL) IV PRN (09:30)
[2020-12-14] MEDS ORDERED: ACETAMINOPHEN 500 MG TAB (TYLENOL) PO PRN (09:30)
[2020-12-14 10:27] VITALS: BP 117/66
== END 2020-12-14 10:50 | disposition home or self-care (01) ==
LOC: INFUSION 09:08
PROVIDERS: ATTEND Registered Nurse
DX: U07.1 COVID-19 (principal)

== ENCOUNTER → 2021-06-07 | Outpatient (CLI) | payer BC ==
--- NOTE | 2021-06-07 16:20 | Diagnostic Imaging Report ---
PROCEDURE: US Venous Lower Ext Sharif. TECHNIQUE: Multiple real-time grayscale images were obtained over the lower extremities in various projections, bilaterally. Additional duplex Doppler and color Doppler images were also obtained. INDICATION: Lower extremity edema. FINDINGS: There is no evidence of right or left lower extremity DVT. Both lower extremity deep venous systems demonstrate normal compressibility with normal response to augmentation and Valsalva. No fluid collection or mass is detected. IMPRESSION: No evidence of right or left lower extremity DVT. Dictated by: Dictated on workstation # [id number]
== END ==
LOC: RAD FS 13:07
PROVIDERS: ATTEND Internal Medicine Cardiovascular Disease
DX: I35.1 Nonrheumatic aortic (valve) insufficiency (principal); I51.7 Cardiomegaly; R60.0 Localized edema
CPT/HCPCS: 93306; 93970

== ENCOUNTER → 2022-01-08 | Outpatient (CLI) | payer BC ==
--- NOTE | 2022-01-08 17:45 | Diagnostic Imaging Report ---
EXAMINATION: Left ankle radiograph EXAM DATE: 01/08/2022 4:33 PM COMPARISON: None available. HISTORY: Pain TECHNIQUE: 3 views FINDINGS: There is no acute fracture, dislocation, or destructive osseous process. The joint spaces are normal. The soft tissues are normal. IMPRESSION: 1. No acute osseous abnormality. Dictated by: Dictated on workstation # [id number]
== END ==
LOC: RAD FS 16:11
PROVIDERS: ATTEND Nurse Practitioner
DX: M25.572 Pain in left ankle and joints of left foot (principal)
CPT/HCPCS: 73610